=== PATIENT | male | born 1945 | race Caucasian/White ===

== ENCOUNTER → 2019-04-24 13:51 | Outpatient (CLI) | payer OTHER, SELFPAY ==
[2019-04-24 13:28] VITALS: BMI 37.0
[2019-04-24 15:46] LABS: Free T3 3.1 pg/mL (2.18-3.98); T4 Free Direct 0.85 ng/dL (0.76-1.46); Thyroid Stim Hormone (TSH) 0.92 uIU/mL (0.358-3.74)
== END ==
PROVIDERS: PCP Family Medicine; Referring Provider Internal Medicine Endocrinology, Diabetes & Metabolism; Visit Provider Internal Medicine Endocrinology, Diabetes & Metabolism
DX: I48.91 Unspecified atrial fibrillation (principal)
CPT/HCPCS: 36415; 84439; 84443; 84481

== ENCOUNTER → 2019-06-29 12:06 | Outpatient (CLI) | payer OTHER, SELFPAY ==
[2019-06-29 10:55] VITALS: BMI 37.0
[2019-06-29 13:00] LABS: Absolute Lymphocyte Count 2.52 X10^3/uL (0.83-4.51); Absolute Neutrophil Count 4.3 X10^3/uL (2.0-7.7); Basophil# 0.04 X10^3/uL; Basophil% 0.5 % (0-1); Eosinophil# 0.07 X10^3/uL; Eosinophils% 0.9 % (0-5); Hematocrit 40.6 % (40-54); Hemoglobin 13.7 g/dL (13.0-16.5); Lymphocyte # 2.52 X10^3/ul (4.0); Lymphocyte % 32.5 % (19-41); Mean Corp Hgb Conc 33.7 g/dL (32-36); Mean Corpuscular Hgb 31.9 pg (27.0-32.0); Mean Corpuscular Volume 94.4 fL (80-94); Mean Platelet Vol. 10.8 fl (6.2-12.0); Monocyte# 0.79 X10^3/uL; Monocyte% 10.2 % (0-10); NRBC Flagged by Analyzer 0 % (0-5); Neutrophil # 4.31 X10^3/uL (2.7-7.7); Neutrophil % 55.5 % (47-70); Platelet Count 179 K/mm3 (150-450); RBC Distribution Width CV 14.3 % (11.6-14.6); RBC Distribution Width SD 49.3 fl (35.1-43.9); White Blood Count 7.8 K/mm3 (4.4-11.0)
[2019-06-29 14:07] LABS: Anion Gap 5 (5-15); BUN 24 mg/dL (7-18); BUN/Creat Ratio 18.5 RATIO (10-20); Calcium,Total 9.5 mg/dL (8.5-10.1); Chloride 109 mmol/L (98-107); EST Glomerular Filtration Rate 58 mL/min (>60); Est Glom Filt Rate - Afr Amer 70 mL/min (>60); Glucose 101 mg/dL (74-106); Magnesium 1.8 mg/dL (1.6-2.6); Potassium 4.2 mmol/L (3.5-5.1); Sodium Level 139 mmol/L (136-145); T4 Total, Thyroxin 7.9 ug/dL (4.5-12.1); Thyroid Stim Hormone (TSH) 0.91 uIU/mL (0.358-3.74)
[2019-07-03 23:59] LABS: Flecainide (Tambocor) 085662 < 0.10 ug/mL (0.20-1.00)
== END ==
PROVIDERS: PCP Family Medicine; Referring Provider Internal Medicine Cardiovascular Disease; Visit Provider Internal Medicine Cardiovascular Disease
DX: I48.20 Chronic atrial fibrillation, unspecified (principal); I10 Essential (primary) hypertension; E78.5 Hyperlipidemia, unspecified
CPT/HCPCS: 36415; 80048; 80299; 83735; 84436; 84443; 85025

== ENCOUNTER 2019-07-10 10:43 | Day surgery (SDC) | payer OTHER, SELFPAY ==
[2019-06-29 10:55] VITALS: BMI 37.0
--- NOTE | 2019-06-29 12:48 | HP_ITS ---
HPI HPI History of Present Illness Surgical H&P: Yes Details: This is a 73-year-old white male who presents today for outpatient cardiovascular consultation based upon concerns of atrial fibrillation. He states he was diagnosed in November 2018, when he presented for an outpatient colonoscopy procedure, with atrial fibrillation. He states his colonoscopy procedure was placed on hold. He underwent local cardiovascular evaluation. He states that over time he had a subsequent second cardiovascular opinion regarding his atrial dysrhythmia. During his time he is undergone noninvasive evaluation. This included a transthoracic echocardiogram and a pharmacologic stress nuclear imaging study. Per the report regarding his transthoracic echocardiogram from [facility] in [place], [place] his left ventricle was thought to be normal with an LVEF of 50 to 55% with biatrial enlargement and no significant valvular disease. Of note the left atrium was reported moderately enlarged and the right atrium was reported mildly enlarged. He subsequently went on, at the same institution, and had a pharmacologic stress nuclear imaging study performed which per the report stated that there was no conclusive evidence of inducible myocardial ischemia or infarction. His gated LVEF was reported at 59%. He did have a remote cardiac catheterization performed on 09-20-1995 at [facility] in [place], [place]. At that time the left ventricle was normal with an LVEF of 60%. The left main coronary was normal. The LAD had minimal 10% plaque. The LCx was normal. The RCA was dominant and was considered normal. There was a comment at that time that the patient's myocardial infarction may have been due to vasospasm. Alternatively the patient may have had a very tiny thrombus occluding a very small vessel. He was recommended for continued medical management. He states that he has not been symptomatic with his atrial dysrhythmia with respect and noting any change in rates or rhythms. His rate has been controlled without rate limiting medication. Over time he was placed on anticoagulant therapy. He states he subsequently did interrupted in early February of this year to have his colonoscopy procedure performed. Otherwise he states he had has not been interrupted since February of this year. He states, after his second cardiovascular opinion, he was placed on medical therapy with flecainide/Tambocor. He was told that after approximately 1 week if he does not convert to sinus rhythm he would be offered elective DC cardioversion. He states he has had issues with respect communicating with that physician's office and thus is never proceeded with DC cardioversion. He denies any ongoing chest discomfort suspicious for angina pectoris. There is been no obvious evidence of acute CHF or pulmonary edema. There has been no near syncope or syncope. He had an ECG performed in the office today. He was noted to have underlying atrial fibrillation with a controlled ventricular response. There were no acute ECG changes. Intake Vital Signs 06/29/19 Height 6 ft 1 in 06/29/19 Weight: 280 lb 7 oz 06/29/19 BP 122/78 H 06/29/19 Blood Pressure Location Lt brachial 06/29/19 Position Sitting 06/29/19 Respiration 18 06/29/19 Pulse 76 06/29/19 Pulse Source Auscultation 06/29/19 BMI 37.0 Intake Visit Reasons: AFIB. SECOND OPINION. 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: No Accompanied by: Self Allergies MARKUS Inhibitors Adverse Reaction (Severe, Verified 06/29/19 10:59) intolerent erythromycin base Adverse Reaction (Severe, Verified 06/29/19 10:59) GI Upset Tqyetio-Spf-Jqs Reductase Inhibitor Adverse Reaction (Severe, Verified 06/29/19 10:59) myalgias Medications esomeprazole magnesium 40 mg capsule,delayed release 40 mg PO DAILY 12/26/18 [History Confirmed 06/29/19] losartan 100 mg tablet 100 mg PO DAILY 12/26/18 [History Confirmed 06/29/19] spironolactone 25 mg tablet 25 mg PO DAILY 12/26/18 [History Confirmed 06/29/19] tamsulosin 0.4 mg capsule 0.4 mg PO DAILY 12/26/18 [History Confirmed 06/29/19] rivaroxaban 20 mg tablet 20 mg PO DAILY 06/27/19 [History Confirmed 06/29/19] amlodipine 5 mg tablet 5 mg PO .COMPLEX 06/29/19 [History Confirmed 06/29/19] flecainide 100 mg tablet 100 mg PO Q12H #1 tab 06/29/19 [Rx Confirmed 06/29/19] [facility] Medical History (Updated 06/29/19 @ 11:[address] Jose Antunez MD) GERD (gastroesophageal reflux disease) (Chronic) MARILEE (obstructive sleep apnea) (Chronic) Chronic atrial fibrillation (Chronic) Essential hypertension (Chronic) Hyperlipidemia (Chronic) History of left heart catheterization (LHC) (Resolved ~09/20/95) Back problem (Acute) GI problem (Acute) Hearing problem (Acute) Hives (Acute) Seasonal allergies (Acute) Surgical History (Updated 06/27/19 @ 13:28 by Alma Hauser) History of cholecystectomy (Resolved) History of shoulder replacement (Resolved) H/O rotator cuff surgery (Resolved) Social History (Updated 06/29/19 @ 12:[address] Jose Antunez MD) Smoking Status: Former smoker alcohol intake: current substance use type: does not use caffeine: Yes Type: coffee Number of servings: 3 what type of physical activity do you participate in: other ROS Const Const: Positive for fatigue (fatigued by afternoon taking more naps then previously); negative for weakness, frequent falls, excessive sweating, weight gain or weight loss Eyes Eyes: Negative for transient loss of vision, blurry vision or change in vision ENT ENT: Negative for dizziness or balance problems Cardio Chest Pain: No Palpitations: No Edema: None Muscle aches with walking: None Resp Respiratory: Positive for SOB with activity (going upstairs; baseline) and wheezing (occasional); negative for SOB at rest GI GI: Negative vomiting or vomiting blood/hematemesis : Negative for hematuria Musc Musc: Negative for muscle aches/ myalgia, muscle weakness, joint pain or balance problems Skin Skin: Negative non-healing lesions or rash Neuro Neuro: Positive for lightheadedness (occasional when eating too fast); negative for dizziness, orthostatic symptoms, frequent falls, weakness or blurry vision [place] Hematologic/Lymphatic: Negative for easy bleeding Endo Endo: Positive for fatigue (fatigued by afternoon taking more naps then previously); negative for excessive sweating Psych Psych: Negative for anxiety or depression Allergy Allergy/Immunology: Negative for hives, Negative for rash Cardiology Exam Const Appearance: cooperative, healthy appearing, comfortable, no acute distress, well developed and well groomed Nutritional Appearance: obese Orientation: alert, awake and oriented x3 Head Head: normal to inspection, normocephalic and atraumatic Ears: hearing grossly normal bilaterally Nose: external nose normal Face and Sinus: face symmetric Eyes Eyelids: eyelids normal Conjunctivae: conjunctivae normal Pupils: PERRL EOM: EOM intact bilaterally Neck Neck: normal visual inspection Carotids: normal carotid upstroke Chest Chest inspection: normal inspection of the chest, symmetric chest movement and normal respiratory effort Auscultation: Bilateral: Clear to Auscultation Cardio Palpation: normal PMI Rhythm: irregular rhythm Heart sounds: S1 normal and S2 normal GI GI: normal to inspection, soft, bowel sounds present and obese Neuro General: alert, awake, oriented x3 and moves all extremities Skin Skin: ecchymosis Extremities Pulses: Normal: Right Radial Pulse, Left Radial Pulse Lower Extremity Edema: None: Bilateral Psych Psychological: normal affect Assessment & Plan 1. Chronic atrial fibrillation I48.20 Plan At the present time he appears to be remaining in persistent atrial fibrillation. This may be secondary to a combination of age and hypertension. He has been evaluated for any obvious left ventricular wall motion with regional abnormalities or systolic dysfunction which appear to be negative based upon his echocardiogram. He was evaluated for any obvious evidence of inducible myocardial ischemia suspicious for ongoing CAD. Again that appeared to be negative based upon his noninvasive studies. He has not been found to have other etiologies of his atrial dysrhythmia thus far. At the present time he has remained without rate control therapy based upon his underlying atrial fibrillation being rate controlled in and of itself without the assistance of medication. He has been on antiarrhythmic therapy with no adverse events. He has been on anticoagulant therapy without interruption since early February of this year. At the present time he will proceed with additional laboratory follow-up. He will also be scheduled for upcoming synchronized biphasic DC cardioversion in an attempt to regain sinus rhythm. Depending upon the findings he may or may not need continued medical management with rate control as deemed appropriate, antiarrhythmic therapy as deemed appropriate, and anticoagulant therapy versus consideration for EP consultation for possible EPS/RFA. The above was discussed with the patient. The synchronized biphasic DC cardioversion procedure with respect to risks and benefits were discussed. He was agreeable to this approach. Orders Orders: 12 Lead EKG performed by [facility] Today Cardioversion Today Basic Metabolic Profile (BMP) Today Magnesium Today T4 Total, Thyroxin Today Thyroid Stim Hormone (TSH) Today CBC W/Diff, Automated Today Flecainide (Tambocor) Level Today 2. Hyperlipidemia, unspecified hyperlipidemia type E78.5 Plan A copy of his lipid labs will be appreciated for continuity of care. Orders Orders: Cardioversion Today Basic Metabolic Profile (BMP) Today Magnesium Today T4 Total, Thyroxin Today Thyroid Stim Hormone (TSH) Today CBC W/Diff, Automated Today Flecainide (Tambocor) Level Today 3. Essential hypertension I10 Plan He will continue medical therapy with adjustment as deemed appropriate. Orders Orders: 12 Lead EKG performed by [facility] Today Cardioversion Today Basic Metabolic Profile (BMP) Today Magnesium Today T4 Total, Thyroxin Today Thyroid Stim Hormone (TSH) Today CBC W/Diff, Automated Today Flecainide (Tambocor) Level Today Plan Detail Other Medications New: flecainide 100 mg PO Q12H 1 tab 0RF Additional Comments Thank you for allowing me to participate in the care of your patient. Please don't hesitate to call if any issues arise. This note was generated using a voice recognition system and there may be incorrect words, spelling or punctuation that were not noted when reviewing the office note prior to saving. Time spent in the patient's evaluation/care/medical decision making process: 60 minutes Follow Up 3 Months (with PFM) Coding Level of Care Code Off vis,new,level 5 Diagnoses Chronic atrial fibrillation I48.20 Hyperlipidemia, unspecified hyperlipidemia type E78.5 ??Hyperlipidemia type: unspecified Essential hypertension I10 Time Spent (min) 60 Comment [id number] Coding Level of Care Code Off vis,new,level 5 Diagnoses Chronic atrial fibrillation I48.20 Hyperlipidemia, unspecified hyperlipidemia type E78.5 ??Hyperlipidemia type: unspecified Essential hypertension I10 Time Spent (min) 60 Comment [id number] Supplemental Info Supplemental Information Diagnostics Electrocardiogram 06/29/19 06/29/19 1249 <Electronically signed by Jose calderon MD> Date _ Jose Antunez MD I have re-examined the patient. There are no clinical changes since date of exam.
--- NOTE | 2019-07-05 12:40 | RAD_ITS ---
STUDY: X-RAY CHEST REASON FOR EXAM: Male, 73 years old. HAVING HEART CATH NEXT WEEK, NO CHEST COMPLAINTS TECHNIQUE: PA and lateral views of the chest. COMPARISON: None. FINDINGS: Cardiac silhouette unremarkable. Pulmonary vascularity unremarkable. Aorta atherosclerotic. No focal airspace opacities. No pleural effusions. Calcified nodule right upper lobe. Upper abdomen unremarkable. Osseous structures demonstrate a left shoulder arthroplasty. No pneumothorax. RAD/Chest PA and Lateral IMPRESSION: No acute cardiopulmonary findings Electronically Signed: Anthnoy Gustafson, at 13:00 EDT Tel , Service support ,
[2019-07-06 14:42] VITALS: BMI 36.9
--- NOTE | 2019-07-10 11:44 | HP.PCM_ITS ---
Problem List (1) Chronic atrial fibrillation Status: Chronic (2) Hyperlipidemia Status: Chronic Qualifiers: (3) Essential hypertension Status: Chronic History and Physical Date of Admission: 07/10/19 [facility] [address] [place] [address] OFFICE VISIT Date of Service: 06/29/19 MR#: [id number] Acct: [id number] Name: BALJIT LE Rep #: [id number] : 1945 Provider: Dr. Jose Antunez MD Age/Sex: 73/M [place] [facility] [place] Signed HPI HPI History of Present Illness Surgical H&P: Yes Details: This is a 73-year-old white male who presents today for outpatient cardiovascular consultation based upon concerns of atrial fibrillation. He states he was diagnosed in November 2018, when he presented for an outpatient colonoscopy procedure, with atrial fibrillation. He states his colonoscopy procedure was placed on hold. He underwent local cardiovascular evaluation. He states that over time he had a subsequent second cardiovascular opinion regarding his atrial dysrhythmia. During his time he is undergone noninvasive evaluation. This included a transthoracic echocardiogram and a pharmacologic stress nuclear imaging study. Per the report regarding his transthoracic echocardiogram from [facility] in [place], [place] his left ventricle was thought to be normal with an LVEF of 50 to 55% with biatrial enlargement and no significant valvular disease. Of note the left atrium was reported moderately enlarged and the right atrium was reported mildly enlarged. He subsequently went on, at the same institution, and had a pharmacologic stress nuclear imaging study performed which per the report stated that there was no conclusive evidence of inducible myocardial ischemia or infarction. His gated LVEF was reported at 59%. He did have a remote cardiac catheterization performed on 09-20-1995 at [facility] in [place], [place]. At that time the left ventricle was normal with an LVEF of 60%. The left main coronary was normal. The LAD had minimal 10% plaque. The LCx was normal. The RCA was dominant and was considered normal. There was a comment at that time that the patient's myocardial infarction may have been due to vasospasm. Alternatively the patient may have had a very tiny thrombus occluding a very small vessel. He was recommended for continued medical management. He states that he has not been symptomatic with his atrial dysrhythmia with respect and noting any change in rates or rhythms. His rate has been controlled without rate limiting medication. Over time he was placed on anticoagulant therapy. He states he subsequently did interrupted in early February of this year to have his colonoscopy procedure performed. Otherwise he states he had has not been interrupted since February of this year. He states, after his second cardiovascular opinion, he was placed on medical therapy with flecainide/Tambocor. He was told that after approximately 1 week if he does not convert to sinus rhythm he would be offered elective DC cardioversion. He states he has had issues with respect communicating with that physician's office and thus is never proceeded with DC cardioversion. He denies any ongoing chest discomfort suspicious for angina pectoris. There is been no obvious evidence of acute CHF or pulmonary edema. There has been no near syncope or syncope. He had an ECG performed in the office today. He was noted to have underlying atrial fibrillation with a controlled ventricular response. There were no acute ECG changes. Intake Vital Signs 06/29/19 Height 6 ft 1 in 06/29/19 Weight: 280 lb 7 oz 06/29/19 BP 122/78 H 06/29/19 Blood Pressure Location Lt brachial 06/29/19 Position Sitting 06/29/19 Respiration 18 06/29/19 Pulse 76 06/29/19 Pulse Source Auscultation 06/29/19 BMI 37.0 Intake Visit Reasons: AFIB. SECOND OPINION. Swing Manager Required: No Accompanied by: Self Allergies MARKUS Inhibitors Adverse Reaction (Severe, Verified 06/29/19 10:59) intolerent erythromycin base Adverse Reaction (Severe, Verified 06/29/19 10:59) GI Upset Rydepsj-Wed-Otp Reductase Inhibitor Adverse Reaction (Severe, Verified 06/29/19 10:59) myalgias Medications esomeprazole magnesium 40 mg capsule,delayed release 40 mg PO DAILY 12/26/18 [History Confirmed 06/29/19] losartan 100 mg tablet 100 mg PO DAILY 12/26/18 [History Confirmed 06/29/19] spironolactone 25 mg tablet 25 mg PO DAILY 12/26/18 [History Confirmed 06/29/19] tamsulosin 0.4 mg capsule 0.4 mg PO DAILY 12/26/18 [History Confirmed 06/29/19] rivaroxaban 20 mg tablet 20 mg PO DAILY 06/27/19 [History Confirmed 06/29/19] amlodipine 5 mg tablet 5 mg PO .COMPLEX 06/29/19 [History Confirmed 06/29/19] flecainide 100 mg tablet 100 mg PO Q12H #1 tab 06/29/19 [Rx Confirmed 06/29/19] PFSH Medical History (Updated 06/29/19 @ 11:[address] Jose Antunez MD) GERD (gastroesophageal reflux disease) (Chronic) MARILEE (obstructive sleep apnea) (Chronic) Chronic atrial fibrillation (Chronic) Essential hypertension (Chronic) Hyperlipidemia (Chronic) History of left heart catheterization (LHC) (Resolved ~09/20/95) Back problem (Acute) GI problem (Acute) Hearing problem (Acute) Hives (Acute) Seasonal allergies (Acute) Surgical History (Updated 06/27/19 @ 13:28 by Alma Hauser) History of cholecystectomy (Resolved) History of shoulder replacement (Resolved) H/O rotator cuff surgery (Resolved) Social History (Updated 06/29/19 @ 12:[address] Jose Antunez MD) Smoking Status: Former smoker alcohol intake: current substance use type: does not use caffeine: Yes Type: coffee Number of servings: 3 what type of physical activity do you participate in: other ROS Const Const: Positive for fatigue (fatigued by afternoon taking more naps then previously); negative for weakness, frequent falls, excessive sweating, weight gain or weight loss Eyes Eyes: Negative for transient loss of vision, blurry vision or change in vision ENT ENT: Negative for dizziness or balance problems Cardio Chest Pain: No Palpitations: No Edema: None Muscle aches with walking: None Resp Respiratory: Positive for SOB with activity (going upstairs; baseline) and wheezing (occasional); negative for SOB at rest GI GI: Negative vomiting or vomiting blood/hematemesis : Negative for hematuria Musc Musc: Negative for muscle aches/ myalgia, muscle weakness, joint pain or balance problems Skin Skin: Negative non-healing lesions or rash Neuro Neuro: Positive for lightheadedness (occasional when eating too fast); negative for dizziness, orthostatic symptoms, frequent falls, weakness or blurry vision Daquan Hematologic/Lymphatic: Negative for easy bleeding Endo Endo: Positive for fatigue (fatigued by afternoon taking more naps then previously); negative for excessive sweating Psych Psych: Negative for anxiety or depression Allergy Allergy/Immunology: Negative for hives, Negative for rash Cardiology Exam Const Appearance: cooperative, healthy appearing, comfortable, no acute distress, well developed and well groomed Nutritional Appearance: obese Orientation: alert, awake and oriented x3 Head Head: normal to inspection, normocephalic and atraumatic Ears: hearing grossly normal bilaterally Nose: external nose normal Face and Sinus: face symmetric Eyes Eyelids: eyelids normal Conjunctivae: conjunctivae normal Pupils: PERRL EOM: EOM intact bilaterally Neck Neck: normal visual inspection Carotids: normal carotid upstroke Chest Chest inspection: normal inspection of the chest, symmetric chest movement and normal respiratory effort Auscultation: Bilateral: Clear to Auscultation Cardio Palpation: normal PMI Rhythm: irregular rhythm Heart sounds: S1 normal and S2 normal GI GI: normal to inspection, soft, bowel sounds present and obese Neuro General: alert, awake, oriented x3 and moves all extremities Skin Skin: ecchymosis Extremities Pulses: Normal: Right Radial Pulse, Left Radial Pulse Lower Extremity Edema: None: Bilateral Psych Psychological: normal affect Assessment & Plan 1. Chronic atrial fibrillation I48.20 Plan At the present time he appears to be remaining in persistent atrial fibrillation. This may be secondary to a combination of age and hypertension. He has been evaluated for any obvious left ventricular wall motion with regional abnormalities or systolic dysfunction which appear to be negative based upon his echocardiogram. He was evaluated for any obvious evidence of inducible myocardial ischemia suspicious for ongoing CAD. Again that appeared to be negative based upon his noninvasive studies. He has not been found to have other etiologies of his atrial dysrhythmia thus far. At the present time he has remained without rate control therapy based upon his underlying atrial fibrillation being rate controlled in and of itself without the assistance of medication. He has been on antiarrhythmic therapy with no adverse events. He has been on anticoagulant therapy without interruption since early February of this year. At the present time he will proceed with additional laboratory follow-up. He will also be scheduled for upcoming synchronized biphasic DC cardioversion in an attempt to regain sinus rhythm. Depending upon the findings he may or may not need continued medical management with rate control as deemed appropriate, antiarrhythmic therapy as deemed appropriate, and anticoagulant therapy versus consideration for EP consultation for possible EPS/RFA. The above was discussed with the patient. The synchronized biphasic DC cardioversion procedure with respect to risks and benefits were discussed. He was agreeable to this approach. Orders Orders: 12 Lead EKG performed by [facility] Today Cardioversion Today Basic Metabolic Profile (BMP) Today Magnesium Today T4 Total, Thyroxin Today Thyroid Stim Hormone (TSH) Today CBC W/Diff, Automated Today Flecainide (Tambocor) Level Today 2. Hyperlipidemia, unspecified hyperlipidemia type E78.5 Plan A copy of his lipid labs will be appreciated for continuity of care. Orders Orders: Cardioversion Today Basic Metabolic Profile (BMP) Today Magnesium Today T4 Total, Thyroxin Today Thyroid Stim Hormone (TSH) Today CBC W/Diff, Automated Today Flecainide (Tambocor) Level Today 3. Essential hypertension I10 Plan He will continue medical therapy with adjustment as deemed appropriate. Orders Orders: 12 Lead EKG performed by [facility] Today Cardioversion Today Basic Metabolic Profile (BMP) Today Magnesium Today T4 Total, Thyroxin Today Thyroid Stim Hormone (TSH) Today CBC W/Diff, Automated Today Flecainide (Tambocor) Level Today Plan Detail Other Medications New: flecainide 100 mg PO Q12H 1 tab 0RF Additional Comments Thank you for allowing me to participate in the care of your patient. Please don't hesitate to call if any issues arise. This note was generated using a voice recognition system and there may be incorrect words, spelling or punctuation that were not noted when reviewing the office note prior to saving. Time spent in the patient's evaluation/care/medical decision making process: 60 minutes Follow Up 3 Months (with PFM) Coding Level of Care Code Off vis,new,level 5 Diagnoses Chronic atrial fibrillation I48.20 Hyperlipidemia, unspecified hyperlipidemia type E78.5 ??Hyperlipidemia type: unspecified Essential hypertension I10 Time Spent (min) 60 Comment 48081 Coding Level of Care Code Off vis,new,level 5 Diagnoses Chronic atrial fibrillation I48.20 Hyperlipidemia, unspecified hyperlipidemia type E78.5 ??Hyperlipidemia type: unspecified Essential hypertension I10 Time Spent (min) 60 Comment [id number] Supplemental Info Supplemental Information Diagnostics Electrocardiogram 06/29/19 06/29/19 1249 <Electronically signed by Jose calderon MD> Date _ Jose Antunez MD Cosigner Signature: Date (if applicable) CC: Dr. Yanira Pate MD ~ I have re-examined the patient. There are no clinical changes since date of exam . Procedure Criteria Procedure Type: Elective - Atrial Fibrillation COVID Risk Discussion: The surgeon/proceduralist and patient have discussed in detail the risk of exposure to and/or potential harm posed by the COVID-19 virus with having a surgery/procedure at this time versus the risk of delaying the surgery/proced ure. It is not possible to know either the risk of delaying the surgery or procedure or chance of getting an infection with perfect accuracy, but a joint decision was made between the patient and the surgeon/proceduralist to proceed at this time with the scheduled surgery/procedure as indicated on the consent form.
--- NOTE | 2019-07-10 12:33 | CARDIOVERS ---
Cardioversion Cardioversion: Date: 07-10-2019 Procedure: Synchronized Biphasic DC Cardioversion Indications: Atrial fibrillation Consent: Per the Patient Anesthesia: per Dr. Redding of pulmonology and critical care medicine with performed 90 mg IV push total Procedure: Synchronized Biphasic DC Cardioversion: 200 J x1: Result: Sinus rhythm Complications: no apparent complications This note was generated with Lexara dictation software. It may contain incorrect words, spelling, and punctuation that were not noted in checking the note before signing.
--- NOTE | 2019-07-10 13:21 | PCM.OP.PRO ---
Problem List (1) Chronic atrial fibrillation Status: Chronic (2) Essential hypertension Status: Chronic (3) GERD (gastroesophageal reflux disease) Status: Chronic (4) Hyperlipidemia Status: Chronic Qualifiers: (5) MARILEE (obstructive sleep apnea) Status: Chronic Procedure Report Date of Procedure: 07/10/19 - Conscious sedation CONSCIOUS SEDATION REPORT BRIEF HISTORY OF PRESENT ILLNESS: The patient is a 73-year-old male who presented to [facility] for an elective outpatient cardioversion due to underlying atrial fibrillation. The patient reports no PO intake since midnight. The patient does have a history of obstructive sleep apnea. The patient reports a history of smoking, but denies COPD. The patient denies any recent constitutional symptoms such as fevers, chills, nausea or vomiting. The patient denies previous anesthetic complications. Patient's last known ejection fraction was 50 to 55% and patient has been compliant with his Xarelto therapy. PHYSICAL EXAMINATION: VITAL SIGNS: Reviewed and were acceptable. GENERAL: The patient is a male, in no apparent distress, speaking in full sentences. HEENT: Normocephalic, atraumatic. Mucous membranes are moist and pink. Good mouth opening noted. Trachea is midline. Good neck mobility. MP IV CHEST: S1, S2 irregularly irregular. No murmurs, rubs or gallops were noted. LUNGS: Clear to auscultation bilaterally without appreciable wheezes, rales or rhonchi. ABDOMEN: Soft, nontender, nondistended. Positive bowel sounds. EXTREMITIES: There is no clubbing, cyanosis or edema. ASA Class: II DESCRIPTION OF PROCEDURE: After confirmation of informed consent, the patient's anesthesia plan was reviewed in detail. Propofol was chosen. Risks and benefits were reviewed and the patient agreed to proceed. At 12:16 PM, the patient was given 40 mg of propofol. The patient required a total of 90 mg of propofol throughout the procedure to achieve appropriate sedation. The patient achieved an appropriate level of sedation and received 1 attempt synchronized cardioversion, at [address] Antunez at the bedside. This was successful in achieving normal sinus rhythm. The patient was monitored until 12:28 PM, at which time the patient reached their baseline mental status and function. The patient tolerated the procedure well. COMPLICATIONS: None ESTIMATED BLOOD LOSS: None RECOMMENDATIONS: Okay to recover in usual fashion. 9xxxx: Other Procedure See Report - [id number]
== END 2019-07-10 13:30 | disposition home or self-care (01) ==
LOC: CLSP 10:43
PROVIDERS: PCP Family Medicine; Referring Provider Internal Medicine Cardiovascular Disease; Visit Provider Internal Medicine Cardiovascular Disease
DX: I48.20 Chronic atrial fibrillation, unspecified (principal); I10 Essential (primary) hypertension; E78.5 Hyperlipidemia, unspecified; E66.9 Obesity, unspecified; Z68.37 Body mass index [BMI] 37.0-37.9, adult
CPT/HCPCS: 71046; 92960; 93005; J7040

== ENCOUNTER → 2019-10-15 12:54 | Outpatient (CLI) | payer OTHER, SELFPAY ==
[2019-10-08 14:00] VITALS: BMI 36.6
== END ==
PROVIDERS: PCP Family Medicine; Referring Provider Internal Medicine Cardiovascular Disease; Visit Provider Internal Medicine Cardiovascular Disease
DX: I48.20 Chronic atrial fibrillation, unspecified (principal); I10 Essential (primary) hypertension; E78.5 Hyperlipidemia, unspecified
CPT/HCPCS: 93225; 93226

== ENCOUNTER 2021-01-15 08:33 | Day surgery (SDC) | payer OTHER, SELFPAY ==
--- NOTE | 2021-01-15 | ESO_PTH ---
PATIENT: BALJIT LE LOC: EN U#:[id number] AGE/SX: 75/M ROOM: RE01/15/[address]: Dr. Axel Sparrow DO : 1945 BED: DIS: 01/15/2021 SPEC #: [id number] RECD: 01/15/21 12:32 STATUS: NIKOLAI TYRON #: [id number] EUN: 01/15/21 00:[address]: Axel Sparrow DEPT: SURGICAL PATHOLOGY RECD BY: Gareth Lunsford ENTERED: 01/15/21 12:32 SP TYPE: KATHERYN GÓMEZ DR: Dr. Yanira Pate MD Tissues: A - Esophagus, NOS B - Gastric mucous membrane Procedures: Special Stain Group II Surgery Specimen Level IV Alcian Blue/PAS (control) HEADER OPERATION: EGD PRE-OP DIAGNOSIS: GERD TISSUE SUBMITTED: A ? Distal esophagus biopsy, B ? Gastric polyp biopsy of lesser curvature MICROSCOPIC DIAGNOSIS A. Distal esophagus, biopsy: Fragments of gastric mucosa with mild chronic inflammation. Intestinal metaplasia (goblet cell metaplasia) not identified. See comment. B. Gastric polyp, biopsy: Fragments of mixed hyperplastic/inflammatory and fundic gland polyp. RICHARD:mark 01/16/2021 COMMENT A. Alcian blue/PAS stain with matched control is used in the evaluation of the specimen. MICROSCOPIC DESCRIPTION Slides are reviewed. GROSS DESCRIPTION A - Received in fixative is one container labeled with the patient's name and designated distal esophagus biopsy. The specimen consists of two irregular fragments of light knight soft tissue that in aggregate measure 0.6 x 0.3 x 0.1 cm. The specimen is totally submitted in one cassette. B - Received in fixative is one container labeled with the patient's name and designated gastric polyp biopsy of lesser curvature. The specimen consists of two irregular fragments of light knight soft tissue that in aggregate measure 0.6 x 0.4 x 0.1 cm. The specimen is totally submitted in one cassette. / RICHARD:mark 01/15/21 TC:3 CPT: 31481 x2
[2021-01-15] MEDS: Lactated Ringers 1,000 ML 15 ML IV (09:00)
[2021-01-15 09:12] VITALS: BP 149/92; PULSE 67; RESP 16; TEMP 36.2; O2SAT 97; BMI 36.6
--- NOTE | 2021-01-15 09:28 | PCM.HP.BLA ---
History and Physical Date of Admission: 01/15/21 [facility], [facility] Medical History Back problem Chronic atrial fibrillation Essential hypertension GERD (gastroesophageal reflux disease) GI problem Hearing problem History of cardioversion (~07/10/19) History of left heart catheterization (LHC) (~09/20/95) Hives Hyperlipidemia MARILEE (obstructive sleep apnea) Seasonal allergies Surgical History H/O rotator cuff surgery History of bilateral cataract extraction History of cholecystectomy History of shoulder replacement Family History Mother Diabetes CVA (cerebral vascular accident) Father Hypertension CVA (cerebral vascular accident) Heart disease Social History Smoking Status: Former smoker alcohol intake: current substance use type: does not use caffeine: Yes Type: coffee Number of servings: 3 what type of physical activity do you participate in: other HPI HPI Details: BALJIT LE, is a 75 M who presents to the office today for the evaluation of abdominal pain and worsening gastroesophageal reflux disease. Patient says he does have a history of hiatal hernia. He does not know if he has history Pfeiffer's esophagus. He said he has been on Nexium for the last 20 years. He is getting breakthrough symptoms. He is not on a PPI twice a day. He has not tried famotidine. He has problems with spicy foods. He complains of a lot of gas and bloating. He also complains of nausea with emesis during the night; this onset about a month ago with increase in symptoms in the last couple weeks with recent improvement. Has noted that gas producing foods and acidic foods trigger symptoms. For the last 20-30 years he has been having difficulty with reflux disease with progressive increase in intensity and frequency. Last colonoscopy two years ago - several polyps removed. EGD performed around the same time - hiatal hernia noted. Currently taking OTC Nexium. ROS Const Constitutional: Positive for fatigue Gastro GI: Positive for abdominal pain, bloating, change in bowel habits, diarrhea, heartburn, nausea/dyspepsia and vomiting Genitourinary Male: Positive for urinary frequency and urinary urgency Skin Skin: Positive for itchy eyes Endo Endocrine: Positive for cold intolerance, fatigue and increased urine leakage Aller/Imm Allergy/Immunologic: Positive for itchy eyes Daquan/Lymp Hematologic/Lymphatic: Positive for easy bruising Exam Const General: cooperative and comfortable Nutritional Appearance: average body habitus and well nourished [facility] Head: normal to inspection Ears: hearing grossly normal bilaterally Nose: external nose normal Face and sinus: normal facial exam Mouth: oral mucosae normal Throat: posterior oropharynx normal Eyes General: appearance normal, both eyes and all related structures Neck Neck: normal visual inspection Chest Chest palpation & inspection: normal inspection of the chest and normal palpation of entire chest wall Resp Effort & Inspection: normal respiratory effort Auscultation: Bilateral: Clear to Auscultation Cardio Palpation: normal PMI Rate: regular rate Rhythm: regular rhythm GI Inspection: normal to inspection Auscultation: normal bowel sounds Percussion: normal to percussion Palpation: no hepatosplenomegaly Skin General: no rashes or lesions noted Neuro General: patient alert Extrem General: normal to inspection Psych Affect: normal affect Quality Reporting Tobacco Screening ([facility] 138) Smoking Status: Former smoker Assessment and Plan Assessment and Plan (1) GERD (gastroesophageal reflux disease): Status: Chronic Plan - Dr. Reyna Friend, DO: We will evaluate his upper GI tract for Pfeiffer's esophagus, hiatal hernia, erosive esophagitis. He will also get biopsies for eosinophilic esophagitis. He may need a gastric emptying study to see if he is having problems gastric emptying. This also could be because of worsening gastroesophageal reflux disease refractory to medical therapy. I have re-examined the patient. There are no clinical changes since date of exam.
[2021-01-15 10:00] VITALS: BP 123/79; BP 149/92; PULSE 69; RESP 16; TEMP 36.3; O2SAT 97
[2021-01-15 10:05] VITALS: BP 127/80; BP 149/92; PULSE 64; RESP 16; O2SAT 94
--- NOTE | 2021-01-15 10:07 | OP.EGD_ITS ---
Patient Name: Nabeel Clifford Procedure Date: 01/15/2021 9:32 AM Date of : 1945 Age: 75 Procedure: Upper GI endoscopy Indications: Epigastric abdominal pain, Dyspepsia, Heartburn Providers: Axel Sparrow DO Medicines: See the Anesthesia note for documentation of the administered medications Patient Profile: This is a 75 year old male. Refer to note in patient chart for documentation of history and physical. Patient has symptoms of chronic abdominal cramping, chronic abdominal distention and acute heartburn. Complications: No immediate complications. Procedure: Pre-Anesthesia Assessment: - Prior to the procedure, a History and Physical was performed, and patient medications and allergies were reviewed. The patient is competent. The risks and benefits of the procedure and the sedation options and risks were discussed with the patient. All questions were answered and informed consent was obtained. Patient identification and proposed procedure were verified by the physician in the pre-procedure area. Mental Status Examination: alert and oriented. Airway Examination: normal oropharyngeal airway and neck mobility. Respiratory Examination: clear to auscultation. CV Examination: normal. Prophylactic Antibiotics: The patient does not require prophylactic antibiotics. Prior Anticoagulants: The patient has taken no previous anticoagulant or antiplatelet agents. After reviewing the risks and benefits, the patient was deemed in satisfactory condition to undergo the procedure. The anesthesia plan was to use moderate sedation / analgesia (conscious sedation). Immediately prior to administration of medications, the patient was re-assessed for adequacy to receive sedatives. The heart rate, respiratory rate, oxygen saturations, blood pressure, adequacy of pulmonary ventilation, and response to care were monitored throughout the procedure. The physical status of the patient was re-assessed after the procedure. After obtaining informed consent, the endoscope was passed under direct vision. Throughout the procedure, the patient's blood pressure, pulse, and oxygen saturations were monitored continuously. The gastroscope was introduced through the mouth, and advanced to the second part of duodenum. The upper GI endoscopy was accomplished without difficulty. The patient tolerated the procedure well. Moderate Sedation: Moderate (conscious) sedation was administered by the endoscopy nurse and supervised by the endoscopist. The patient's oxygen saturation, heart rate, blood pressure and response to care were monitored. Total physician intraservice time was 15 minutes. Scope In: 9:44:14 AM Scope Out: 9:52:23 AM Total Procedure Duration Time 0 hours 8 minutes 9 seconds Findings: Grade I varices were found in the upper third of the esophagus. Estimated blood loss: none. Grade I varices were found in the lower third of the esophagus. They were 2 mm in largest diameter. LA Grade A (one or more mucosal breaks less than 5 mm, not extending between tops of 2 mucosal folds) esophagitis with no bleeding was found 34 to 35 cm from the incisors. Biopsies were taken with a cold forceps for histology. A single 5 mm sessile polyp with no bleeding and no stigmata of recent bleeding was found on the lesser curvature of the stomach. The polyp was removed with a jumbo cold forceps. Resection was complete, but the polyp tissue was only partially retrieved. Estimated blood loss was minimal. The second portion of the duodenum was normal. Localized atrophic mucosa was found on the greater curvature of the stomach. Diffuse moderate mucosal changes characterized by thickened gastric folds throughout the stomach were found in the entire examined stomach. Impression: - Grade I esophageal varices. - Grade I esophageal varices. - LA Grade A reflux esophagitis. Biopsied. - A single gastric polyp. Complete resection. Partial retrieval. - Normal second portion of the duodenum. - Gastric mucosal atrophy. - Thickened gastric folds throughout the stomach mucosa in the stomach. Recommendation: - Discharge patient to home. - Resume previous diet. - Continue present medications. - Await pathology results. - Repeat upper endoscopy in 1 year for surveillance based on pathology results. - Return to GI office in 2 weeks. -Check serum gastrin level, protein electrophoresis, CMP, CT scan of the chest and abdomen pelvis Procedure Code(s): --- Professional --- 49165, Esophagogastroduodenoscopy, flexible, transoral; with biopsy, single or multiple G0500, Moderate sedation services provided by the same physician or other qualified health manager urgent care performing a gastrointestinal endoscopic service that sedation supports, requiring the presence of an independent trained observer to assist in the monitoring of the patient's level of consciousness and physiological status; initial 15 minutes of intra-service time; patient age 5 years or older (additional time may be reported with 64901, as appropriate) CPT copyright 2017 [employer]. All rights reserved. The codes documented in this report are preliminary and upon sales and marketing coordinator review may be revised to meet current compliance requirements. Axel Sparrow DO 01/15/2021 10:07:23 AM This report has been signed electronically. Number of Addenda: 1 Note Initiated On: 01/15/2021 9:32 AM Addendum Number: 1 Addendum Date: 10/21/2021 6:59:59 AM MAC was used instead of moderate sedation for the patient. Axel Sparrow DO 10/21/2021 7:00:06 AM This report has been signed electronically.
[2021-01-15 10:10] VITALS: BP 139/80; BP 149/92; PULSE 62; RESP 16; O2SAT 97
[2021-01-15 10:15] VITALS: BP 137/82; BP 149/92; PULSE 63; RESP 16; TEMP 36.5; O2SAT 95
[2021-01-15 11:26] VITALS: BP 149/92
[2021-01-15 11:37] LABS: Erythrocyte Sedimentation Rate 8 mm/hr (0-20)
[2021-01-15 11:46] LABS: ALB/GLOB Ratio 0.9 RATIO (0.9-2.4); AST(SGOT) 20 U/L (15-37); Alanine Aminotransfer ALT/SGPT 31 U/L (16-61); Albumin, Serum 3.8 g/dL (3.2-5.0); Alkaline Phosphatase 66 U/L (45-117); Anion Gap 5 (5-15); BUN 24 mg/dL (7-18); BUN/Creat Ratio 19.2 RATIO (10-20); Calcium,Total 9.5 mg/dL (8.5-10.1); Chloride 106 mmol/L (98-107); Creatinine, Serum 1.25 mg/dL (0.70-1.30); EST Glomerular Filtration Rate 60 mL/min (>60); Est Glom Filt Rate - Afr Amer 73 mL/min (>60); Estimated Creatinine Clearance 59.48 ml/min; Globulin 4.1 g/dL (2.2-4.2); Glucose 142 mg/dL (74-106); Potassium 4.3 mmol/L (3.5-5.1); Protein, Total 7.9 g/dL (6.4-8.2); Sodium Level 138 mmol/L (136-145)
[2021-01-17 14:08] LABS: Cytoplasmic Ab (C-ANCA) <1:20 titer (Neg:<1:20)
[2021-01-17 14:25] LABS: Perinuclear Ab (P-ANCA) <1:20 titer (Neg:<1:20)
[2021-01-17 14:26] LABS: Gastrin, Serum 874 pg/mL (0-115)
== END 2021-01-15 11:29 ==
LOC: EN 08:38 → AC 08:38
PROVIDERS: PCP Family Medicine; Referring Provider Family Medicine; Visit Provider Internal Medicine Gastroenterology
PROC: (CPT 43239; principal; 2021-01-15 09:40)
DX: I85.00 Esophageal varices without bleeding (principal); K29.40 Chronic atrophic gastritis without bleeding; K21.00 Gastro-esophageal reflux disease with esophagitis, without bleeding; K31.7 Polyp of stomach and duodenum; I10 Essential (primary) hypertension; K21.9 Gastro-esophageal reflux disease without esophagitis; E78.5 Hyperlipidemia, unspecified; I48.20 Chronic atrial fibrillation, unspecified; Z87.891 Personal history of nicotine dependence; Z79.02 Long term (current) use of antithrombotics/antiplatelets; Z79.899 Other long term (current) drug therapy
CPT/HCPCS: 43239; 80053; 82941; 85652; 86256; 88305; 88313; J7120; J2405

== ENCOUNTER → 2021-01-26 12:00 | Outpatient (CLI) | payer OTHER, SELFPAY ==
--- NOTE | 2021-01-26 12:05 | CT_ITS ---
STUDY: CT ABDOMEN AND PELVIS WITH CONTRAST REASON FOR EXAM: Male, 75 years old. Increased abdominal pain RADIATION DOSAGE (If Supplied By Facility): CTDIvol = ( 20.29 ) mGy, DLP = ( 1235.67 ) mGycm TECHNIQUE: Transaxial images were obtained from the dome of the diaphragm to the symphysis pubis with oral contrast. Oral and amp; IV Gastrografin and amp; 100mL Isovue-370 was administered. Sagittal and coronal images were reconstructed. Individualized dose optimization techniques were used for this CT. COMPARISON: None. FINDINGS: Mild increased linear markings at the lung bases suggestive of a mild degree of linear scarring. The visualized portions of the heart are within normal limits. There is decreased attenuation of the liver consistent with steatosis. There is evidence of a 1.1 cm cyst in the inferior medial aspect of the right lobe of the liver. The patient is status post cholecystectomy. Normal spleen. Normal pancreas. Normal bilateral adrenal glands. There is a 1 cm cyst in the anterior upper pole of the right kidney. Small cysts are also seen in the left kidney. The largest is in the anterior aspect and measures 1.1 cm. There is a small left retroaortic renal vein. Normal visualized stomach. Normal small intestine. There are multiple colonic diverticula consistent with diverticulosis. The appendix is visualized and appears normal. There is diffuse atherosclerotic calcification of the abdominal aorta and its major visceral branches, without a demonstrated aneurysm. Normal inferior vena cava. There is borderline retroperitoneal lymphadenopathy with enlarged nodes no greater than 10mm in the short axis diameter. The urinary bladder is not adequately distended. The prostate is enlarged and measures 4.6 cm x 5.3 cm. Diffuse calcifications are seen within it. There is a small umbilical hernia containing fat. There are diffuse degenerative changes of the visualized lumbar spine. CT/Abdomen/Pelvis WITH Contrast IMPRESSION: Mild basilar linear scarring. Fatty infiltration of the liver. Small cyst in the right lobe of the liver. Bilateral renal cysts. Sigmoid diverticulosis. Prostatic enlargement. Electronically Signed: Darrian Rodriguez MD at 14:58 EST , Service support ,
== END ==
PROVIDERS: PCP Family Medicine; Referring Provider Internal Medicine Gastroenterology; Visit Provider Internal Medicine Gastroenterology
DX: K76.0 Fatty (change of) liver, not elsewhere classified (principal); K76.89 Other specified diseases of liver; K57.30 Diverticulosis of large intestine without perforation or abscess without bleeding; N28.1 Cyst of kidney, acquired; N40.0 Benign prostatic hyperplasia without lower urinary tract symptoms; R10.9 Unspecified abdominal pain
CPT/HCPCS: 74177; Q9967

== ENCOUNTER → 2021-02-04 10:08 | Outpatient (CLI) | payer OTHER, SELFPAY ==
--- NOTE | 2021-02-04 10:12 | NM_ITS ---
CLINICAL: 75-year-old male with history of abdominal pain. SEMI-SOLID PHASE 99m Tc SULFUR COLLOID GASTRIC EMPTYING STUDY COMPARISON: CT of the abdomen-pelvis report 01/26/2021 FINDINGS: The patient was administered 1.1 mCi of 99m Tc sulfur colloid mixed with oatmeal and consumed per os. Image acquisitions in the anterior-posterior projections for a total of 60 minutes. There is prompt visualization of the stomach. There is no gastroesophageal reflux identified. The T ? emptying was calculated to be 13.21 minutes, (Normal: 12-56 minutes). NM/Gastric Emptying Study IMPRESSION: 1. NORMAL 99m Tc sulfur colloid semi-solid phase (oatmeal) gastric emptying imaging examination. A. There is normal and preserved semi-solid phase gastric emptying compared to normal controls. (Stuart et al, J Nucl Med Tech 38: 186, 2010). Electronically Signed: Abelino Nelson DO at 22:20 EST Tel , Service support ,
== END ==
PROVIDERS: PCP Family Medicine; Referring Provider Internal Medicine Gastroenterology; Visit Provider Internal Medicine Gastroenterology
DX: E16.4 Increased secretion of gastrin (principal)
CPT/HCPCS: 78264; A9541

== ENCOUNTER → 2021-02-11 08:30 | Outpatient (CLI) | payer OTHER, SELFPAY ==
--- NOTE | 2021-02-11 08:56 | US_ITS ---
STUDY: ABDOMINAL ULTRASOUND - RIGHT UPPER QUADRANT REASON FOR VISIT: Male, 75 years old [place] TECHNIQUE: Ultrasound evaluation of the right upper quadrant was performed with real-time and static molina-scale imaging. TECHNICAL QUALITY: Adequate. COMPARISON: Comparison is made with prior CT scan of the abdomen and pelvis dated 01/26/2021. FINDINGS: Liver: The liver is mildly enlarged and measures 19.1 cm. There is increased echogenicity consistent with fatty infiltration. The bile ducts are within normal limits. There is hepatic color flow. The direction of portal flow is hepatopetal. There is no demonstrated mass lesion. Gallbladder: The patient is status post cholecystectomy. Common Bile Duct (C.B.D.): The common bile duct measures 5.3 mm. Pancreas: Normal size of the head, body and tail of the pancreas. There is normal echogenicity of the pancreas. There is no demonstrated pancreatic mass or cyst. Right Kidney: Normal size of the right kidney. The right kidney measures 11.8 cm x 6.3 cm x 6.7 cm. Normal renal cortex. The right cortex measures 2.2 cm. There is a 1 cm x 0.9 cm x 0.9 cm right renal cyst. There is no right hydronephrosis. IMPRESSION: Mild hepatomegaly and fatty infiltration of the liver. Electronically Signed: Darrian Rodriguez MD at 10:12 EST , Service support , STUDY: ABDOMINAL ULTRASOUND - ELASTOGRAPHY REASON FOR VISIT: Male, 75 years old. [place]. TECHNIQUE: Liver stiffness measurements were obtained on a [employer] 85 ultrasound machine using a CA 1-7 probe following the SRU guidelines. 3 measurements were obtained using a 2-D-SWE method. The IQR/M was 18% suggesting a quality data set. TECHNICAL QUALITY: Adequate. COMPARISON: Comparison is made with prior examination done earlier in the day. FINDINGS: Liver: There is evidence of fatty infiltration of the liver. Median liver stiffness measured 6 kPa. US/Abdomen Limited IMPRESSION: Liver stiffness measures 6 kPa compatible with F2 Metavir score. Electronically Signed: Darrian Rodriguez MD at 10:14 EST , Service support ,
== END ==
PROVIDERS: PCP Family Medicine; Referring Provider Internal Medicine Gastroenterology; Visit Provider Internal Medicine Gastroenterology
DX: K75.81 Nonalcoholic steatohepatitis (NASH) (principal)
CPT/HCPCS: 76705; 76981

== ENCOUNTER 2021-03-31 07:53 | Outpatient (CLI) | payer OTHER, SELFPAY ==
[2021-03-31 08:42] LABS: International Normalized Ratio 1.2; Prothrombin Time (Protime)PT. 14.3 SECONDS (11.7-14.9)
[2021-03-31 08:45] LABS: Erythrocyte Sedimentation Rate 6 mm/hr (0-20)
[2021-03-31 08:46] LABS: Absolute Lymphocyte Count 2.01 X10^3/uL (0.83-4.51); Absolute Neutrophil Count 2.7 X10^3/uL (2.0-7.7); Basophil# 0.03 X10^3/uL; Basophil% 0.5 % (0-1); Eosinophil# 0.03 X10^3/uL; Eosinophils% 0.5 % (0-5); Hemoglobin 14.4 g/dL (13.0-16.5); Lymphocyte # 2.01 X10^3/ul (0.83-4.51); Lymphocyte % 35.3 % (19-41); Mean Corp Hgb Conc 35.1 g/dL (32-36); Mean Corpuscular Hgb 32.7 pg (27.0-32.0); Mean Corpuscular Volume 93.2 fL (80-94); Mean Platelet Vol. 10.6 fl (6.2-12.0); Monocyte# 0.88 X10^3/uL; Monocyte% 15.5 % (0-10); NRBC Flagged by Analyzer 0 % (0-5); Neutrophil # 2.72 X10^3/uL (2.7-7.7); Neutrophil % 47.8 % (47-70); Platelet Count 218 K/mm3 (150-450); RBC Distribution Width CV 14.2 % (11.6-14.6); White Blood Count 5.7 K/mm3 (4.4-11.0)
[2021-03-31 09:07] LABS: Hemoglobin A1c 5.6 % (3.8-5.6)
[2021-03-31 09:12] LABS: AST(SGOT) 19 U/L (15-37); Alanine Aminotransfer ALT/SGPT 31 U/L (16-61); Albumin, Serum 3.8 g/dL (3.2-5.0); Alkaline Phosphatase 75 U/L (45-117); Anion Gap 5 (5-15); BUN 30 mg/dL (7-18); BUN/Creat Ratio 21.6 RATIO (10-20); CRP < 2.90 mg/L (0.0-3.0); Calcium,Total 9.2 mg/dL (8.5-10.1); Chloride 107 mmol/L (98-107); Creatinine, Serum 1.39 mg/dL (0.70-1.30); EST Glomerular Filtration Rate 53 mL/min (>60); Est Glom Filt Rate - Afr Amer 64 mL/min (>60); Ferritin 196 ng/mL (26-388); Globulin 3.9 g/dL (2.2-4.2); Glucose 113 mg/dL (74-106); LDH 213 U/L (87-241); Potassium 4.3 mmol/L (3.5-5.1); Protein, Total 7.7 g/dL (6.4-8.2); Sodium Level 137 mmol/L (136-145)
[2021-03-31 09:28] LABS: HIV - WCH Non-Reactive (Nonreactive)
[2021-04-01 16:10] LABS: Anti-Centromere B Ab <0.2 AI (0.0-0.9); Anti-Chromatin <0.2 AI (0.0-0.9); Anti-Jo <0.2 AI (0.0-0.9); Anti-Scleroderma-70 AB <0.2 AI (0.0-0.9); RNP Ab 0.5 AI (0.0-0.9); SJOGREN'S Anti-SS-A test < 0.2 AI (0.0-0.9); SJOGREN'S Anti-SS-B test < 0.2 AI (0.0-0.9); Smith Ab <0.2 AI (0.0-0.9)
[2021-04-01 17:54] LABS: Anti-Mitochondrial AB <20.0 Units (0.0-20.0); Anti-dsDNA Ab <1 IU/mL (0-9)
[2021-04-04 01:06] LABS: Angiotensin Convert Enzyme 74 U/L (14-82); HEPATITIS B SURFACE AG Negative (Negative); Hepatitis A IgM Antibody Negative (Negative); Hepatitis B Core AB IgM Negative (Negative); PROEL- A/G Ratio 1.2 (0.7-1.7); PROEL- Albumin 3.8 g/dL (2.9-4.4); PROEL- Alpha-1 Globulin 0.2 g/dL (0.0-0.4); PROEL- Alpha-2 Globulin 0.6 g/dL (0.4-1.0); PROEL- Beta Globulin 1.1 g/dL (0.7-1.3); PROEL- Gamma Globulin 1.4 g/dL (0.4-1.8); PROEL- Globulin, Total 3.3 g/dL (2.2-3.9); PROEL- TOTAL PROTEIN 7.1 g/dL (6.0-8.5)
[2021-04-04 10:22] LABS: Anti-Smooth Muscle ABS 9 Units (0-19); Haptoglobin 116 mg/dL (34-355); Hep C Antibodies <0.1 s/co ratio (0.0-0.9)
[2021-04-04 10:23] LABS: Copper, Serum or Plasma 89 ug/dL (69-132); Gastrin, Serum 569 pg/mL (0-115)
== END 2021-03-31 23:59 | disposition home or self-care (01) ==
PROVIDERS: PCP Family Medicine; Referring Provider Internal Medicine Gastroenterology; Visit Provider Internal Medicine Gastroenterology
DX: K76.0 Fatty (change of) liver, not elsewhere classified (principal); K21.9 Gastro-esophageal reflux disease without esophagitis; E16.4 Increased secretion of gastrin
CPT/HCPCS: 80053; 80074; 82105; 82164; 82390; 82525; 82728; 82941; 83010; 83036; 83516; 83615; 84165; 85025; 85610; 85652; 86140; 86225; 86235; 86703

== ENCOUNTER → 2021-11-04 | Outpatient (CLI) | payer OTHER, SELFPAY ==
--- NOTE | 2021-11-04 07:40 | CT_ITS ---
INDICATION: COUGH EXAMINATION: CT CHEST WITH CONTRAST - CT Chest W/ Contrast Injection TECHNIQUE: Helically acquired images were obtained of the chest following IV contrast. A radiation dose optimization technique was used for this scan. IV Contrast dosage and agent: 100 mL of ISOVUE-370. COMPARISON: 01/26/2021. FINDINGS: THYROID: 0.9 cm nodule visualized in the isthmus. Subtle areas of low attenuation visualized in bilateral thyroid lobes suggestive of nodules would recommend further evaluation with a dedicated thyroid ultrasound. HEART AND PERICARDIUM: Heart size is mildly enlarged. Scattered atherosclerotic calcifications visualized in the coronary vessels.. No pericardial effusion. VESSELS: Thoracic aorta is not dilated. No aortic dissection. No obvious central pulmonary embolism although this study was not performed with the pulmonary embolism protocol. LUNGS, PLEURA AND LARGE AIRWAYS: 0.9 times centimeters calcified granuloma visualized in the right upper lobe. Prominence of the bronchovascular interstitial lung markings is visualized bilaterally. Bronchial wall thickening is seen, no evidence of endobronchial or endotracheal lesions is seen. Bilateral lower lobe dependent atelectatic changes are seen. With groundglass opacification visualized in the lower lung cuellar more prominent on the left. No evidence of pneumothorax or pleural effusion. MEDIASTINUM AND YOUSUF: Scattered mediastinal lymph nodes visualized the largest of which is seen along the anterior aspect of the right mainstem bronchus/paula seen on axial series 2 image 44 measuring 1.6 cm. Right hilar lymph nodes visualized most prominent on axial series 2 image 49 measuring 2.1 cm. Subcarinal lymph nodes visualized on axial series 2 image 53 measuring 1.6 cm. Left hilar lymph nodes visualized on axial series 2 image 53 measuring 1.5 cm.. Esophagus is unremarkable. No hiatal hernia. UPPER ABDOMEN: No acute pathology. BONES: No suspicious lytic or blastic abnormality. CT/Chest WITH Contrast IMPRESSION: Bronchial wall thickening, chronic interstitial markings visualized in the lower lung cuellar with groundglass airspace opacification seen. These findings demonstrate significant significant progression in comparison to the prior study obtained on 01/26/2021. Mild cardiomegaly. Electronically Signed: Mitchell Ag MD at 11:59 EDT ,
[2021-11-04 07:51] LABS: CREATININE FINGERSTICK 1.4 mg/dL (0.70-1.30)
== END | disposition home or self-care (01) ==
PROVIDERS: PCP Family Medicine; Referring Provider Family Medicine; Visit Provider Family Medicine
DX: R04.2 Hemoptysis (principal)
CPT/HCPCS: 71260; Q9967; A4216

== ENCOUNTER → 2021-11-20 | Outpatient (CLI) | payer OTHER, SELFPAY ==
[2021-11-20 13:36] LABS: Cholesterol 220 mg/dL (200); High Density Lipoprotein 59 mg/dL; Thyroid Stim Hormone (TSH) < 0.01 uIU/mL (0.358-3.74); Triglycerides 96 mg/dL; Very Low Density Lipoprotein 19 mg/dL (5-40)
[2021-11-20 14:18] LABS: Hemoglobin A1c 5.7 % (3.8-5.6)
[2021-11-20 15:58] LABS: T3 Total - Triiodothyronine 0.98 ng/mL (0.6-1.81)
[2021-11-23 16:08] LABS: Endomysial Antibody IgA Negative (Negative); Immunoglobulin A 302 mg/dL (61-437)
[2021-11-24 09:24] LABS: Gastrin, Serum 301 pg/mL (0-115); t-Transglutaminase IgA <2 U/mL (0-3)
== END | disposition home or self-care (01) ==
LOC: LAB 11:46
PROVIDERS: PCP Family Medicine; Visit Provider Nurse Practitioner Adult Health
DX: E16.4 Increased secretion of gastrin (principal); K76.0 Fatty (change of) liver, not elsewhere classified; R10.9 Unspecified abdominal pain; R94.6 Abnormal results of thyroid function studies
CPT/HCPCS: 36415; 80061; 82784; 82941; 83036; 83516; 84439; 84443; 84480; 86255

== ENCOUNTER → 2021-11-23 | Outpatient (CLI) | payer OTHER, SELFPAY ==
--- NOTE | 2021-11-23 12:56 | US_ITS ---
STUDY: THYROID ULTRASOUND REASON FOR EXAM: Male, 76 years old. NODULE seen on CT TECHNIQUE: Ultrasound evaluation of the thyroid was performed with real-time and static molina-scale imaging. COMPARISON: None. FINDINGS: RIGHT LOBE: The right lobe of the thyroid gland measures 5.9 x 2.5 x 2.1 cm. There are 3 nodules in the mid to upper pole of the right lobe. These are mixed solid and cystic nodules measuring 1.0 x 0.7 x 0.4, 0.6 x 0.3 x 1.0 and 0.7 x 0.5 x 0.4 cm. The 0.7 x 0.5 x 0.4 cm focus is predominantly cystic. LEFT LOBE: The left lobe of the thyroid gland measures 5.6 x 2.5 x 2.0 cm.. There are 3 nodules seen within the mid to upper pole of the left lobe measuring 0.7 x 0.8 x 0.5, 1.3 x 0.8 x 0.6 and 1.2 x 0.9 x 0.8 cm. ISTHMUS: The isthmus measures 0.8 cm. 2 nodules are seen in the isthmus 0.7 x 0.8 x 0.6 1.0 x 1.2 x 0.9 . The regional lymph nodes are normal. US/Thyroid IMPRESSION: Multicystic/nodular goiter as above. Electronically Signed: Aurelio Barton MD, NEVAEH at 8:35 EDT ,
== END | disposition home or self-care (01) ==
LOC: US 12:54
PROVIDERS: PCP Family Medicine; Referring Provider Family Medicine; Visit Provider Family Medicine
DX: E04.1 Nontoxic single thyroid nodule (principal)
CPT/HCPCS: 76536

== ENCOUNTER 2021-12-02 09:39 | Outpatient (RCR) | payer OTHER, SELFPAY | END 2021-12-14 23:59 | LOC: NS 09:39 | PROVIDERS: PCP Family Medicine; Referring Provider Nurse Practitioner Adult Health; Visit Provider Nurse Practitioner Adult Health | DX: Z71.3 Dietary counseling and surveillance (principal); I10 Essential (primary) hypertension; E78.5 Hyperlipidemia, unspecified; I48.20 Chronic atrial fibrillation, unspecified; K21.9 Gastro-esophageal reflux disease without esophagitis; K90.49 Malabsorption due to intolerance, not elsewhere classified | CPT/HCPCS: 97802 ==

== ENCOUNTER → 2021-12-02 | Outpatient (CLI) | payer OTHER, SELFPAY ==
--- NOTE | 2021-12-02 | SPU_PTH ---
PATIENT: BALJIT LE LOC: LAB U#:[id number] AGE/SX: 76/M ROOM: RE12/02/[address]: Dr. Sean Weaver MD : 1945 BED: DIS: 12/02/2021 SPEC #: [id number] RECD: 12/02/21 12:09 STATUS: NIKOLAI TYRON #: [id number] EUN: 12/02/21 00:[address]: Sean Weaver V DEPT: CYTOLOGY RECD BY: Crys Feliciano ENTERED: 12/02/21 12:10 SP TYPE: Sputum Cy DALIA DR: Dr. Yanira Pate MD Tissues: Sputum Procedures: Pap Stain (control) Special Stain Group II Special Stain Group I AFB Stain (control) Cytospin Fluid HEADER OPERATION: Not noted PRE-OP DIAGNOSIS: Cough TISSUE SUBMITTED: Sputum for cytology DIAGNOSIS CYTOLOGY Sputum for cytology (smears and cytospins): Negative for malignant cells. Negative for acid-fast bacilli. See comment. AM:mark 12/02/2021 COMMENT AFB stain with matched control was used in the evaluation of this case. CYTOLOGY STUDY Slides are reviewed. CYTOLOGY GROSS Received is 1 ml of colorless mucoid fluid labeled with the patient's name and and designated per the requisition as sputum. Submitted for cytology preparation. / mark 12/02/2021 TC:5 CPT: 51573, 66168
[2021-12-02 09:07] LABS: Acid Fast Stain SEE PATHOLOGY REPORT; Cytology, Body Fluid / CSF SEE PATHOLOGY REPORT
[2021-12-04 20:07] LABS: QNTFERON TB Mitogen Value > 10.00 IU/mL (.); QNTFERON TB Nil Value 0.07 IU/mL (.); QNTFERON TB1+ Ag Value 0.06 IU/mL (.); QNTFERON TB2+ Ag Value 0.07 IU/mL (.)
[2021-12-06 09:30] LABS: QNTIFERON TB Positive Criteria Negative (Negative)
== END | disposition home or self-care (01) ==
LOC: LAB 08:58
PROVIDERS: PCP Family Medicine; Referring Provider Internal Medicine Pulmonary Disease; Visit Provider Internal Medicine Pulmonary Disease
DX: R05.9 Cough, unspecified (principal)
CPT/HCPCS: 36415; 86480; 87015; 87116; 87206; 88108; 88312; 88313

== ENCOUNTER → 2021-12-25 | Outpatient (CLI) | payer OTHER, SELFPAY ==
[2021-12-25 12:49] LABS: Free T3 2.4 pg/mL (2.18-3.98); T4 Free Direct 0.82 ng/dL (0.76-1.46); Thyroid Stim Hormone (TSH) 0.99 uIU/mL (0.358-3.74)
== END | disposition home or self-care (01) ==
LOC: LAB 11:31
PROVIDERS: PCP Family Medicine; Visit Provider Internal Medicine Endocrinology, Diabetes & Metabolism
DX: E05.20 Thyrotoxicosis with toxic multinodular goiter without thyrotoxic crisis or storm (principal)
CPT/HCPCS: 36415; 84439; 84443; 84481

== ENCOUNTER → 2022-03-10 | Outpatient (CLI) | payer OTHER, SELFPAY ==
--- NOTE | 2022-03-10 14:32 | SP.MBSS_ITS ---
Modified Barium Swallow - Patient Information Study Date: 03/10/22 Study Time: 13:00 Direct Billable Minutes: 110 Total Minutes procedure & reportin Diagnosis: Dysphagia, unspecified (R13.10) Referring Physician: Sean Weaver V Reason for Referral: Objectively assess swallow function, assess risk for aspiration, and determine recommendations for least restrictive diet textures and compensatory strategies to improve safety of swallow. Medical History: Pt is a 76-year-old male with PMH including alcohol use, chronic A fib, difficulty swallowing, HTN, former smoker, GERD, hx of hiatal hernia, MARILEE (SEE EMR for full PMH). He follows with [facility] CENTER REPRESENTATIVE, Brenda Cornelius, to manage GERD, hypergastrinemia, and NAFLD. He was referred by Dr. Weaver for cough. Pt reports swallowing difficulty daily for the past couple of years. He reports both food and drink give him difficulty, but especially drinking water fast or eating hard-boiled eggs. He states that if he drinks too much water after the gym, he will feel like he is ?choking and passing out?. Current Diet Ordered: Regular textures / Thin liquids Dentition: WNL Mental Status: WNL Respiratory Status: Oxygenating on Room Air - Penetration-Aspiration Scale Penetration-Aspiration Scale: OBJECTIVE ASSESSMENT OF SWALLOW FUNCTION (QUANTITATIVE ? PER TRIAL): PENETRATION / ASPIRATION SCALE (ANDREW): 1 = does not enter airway 2 = enters airway/above vocal folds/ejected 3 = enters airway/above vocal folds/not ejected 4 = enters airway/contacts vocal folds/ejected 5 = enters airway/contacts vocal folds/not ejected 6 = enters airway/below vocal folds/ejected 7 = enters airway/below vocal folds/not ejected despite effort 8 = enters airway/below vocal folds/no effort VIDEOFLOROSCOPIC SCALE SCORE (ANDREW): Grade I = aspiration of material that has penetrated into the laryngeal vestibule, intact cough reflex Grade II = aspiration < 10 % of the bolus, intact cough reflex Grade III = aspiration of < 10 % of the bolus, reduced cough reflex or aspiration of > 10 % of the bolus, intact cough reflex Grade IV = aspiration of > 10 % of the bolus, reduced cough reflex - Penetration-Aspiration Scale Score Thin Liquid via teaspoon Result: 1= does not enter airway Thin Liquid via teaspoon Trial 2 Result: 1= does not enter airway Thin Liquid via small single sip from cup Result: 1= does not enter airway Thin Liquid via sequential sips from cup Result: 1= does not enter airway [place] Thick Liquid via small single sip from cup Result: 1= does not enter airway Pudding via teaspoon with esophageal screen Result: 1= does not enter airway Thin Liquid via single sip from straw with esophageal screen Result: 1= does not enter airway Thin Liquid via sequential sips from straw with esophageal screen Result: 1= does not enter airway 1/2 Cookie Result: 1= does not enter airway - Oral Phase Labial Seal: No Labial Escape Tongue Control During Bolus Hold: Posterior escape of less than half of bolus Bolus Preparation/Mastication: Timely and efficient chewing and mashing Bolus Transport/Lingual Motion: Brisk tongue motion Oral Residue: Residue collection on oral structures - Pharyngeal Phase Initiation of Pharyngeal Swallow: Bolus head in pyriforms Soft Palate Elevation: Trace column of contrast/air between soft palate and pharyngeal wall Laryngeal Elevation: Comp. Superior move thyroid cart w/comp. apprx arytenoid cart-epig pet Anterior Hyoid Excursion: Partial anterior movement Epiglottic Movement: Complete inversion Laryngeal Vestibule Closure at Height of Swallow: Complete; no air/contrast in laryngeal vestibule Pharyngeal Stripping Wave: Present - complete Pharyngoesophageal Segment Opening: Complete distension and complete duration; no obstruction of flow Tongue Base Retraction: Trace column of contrast between tongue base & post. pharyngeal wall Pharyngeal Residue: Trace residue within or on pharyngeal structures - Esophageal Phase Esophageal Clearance: Esophageal retention w/ retrograde flow through pharyngoesophageal seg - Diagnosis/Impression Diagnosis: Oropharyngeal swallow function grossly WNL; Esophageal dysphagia (R13.14) Impression: Overall, the patient presents with oropharyngeal swallow function WNL. Mildly decreased bolus control with posterior loss of <1/2 of sequential thin liquids to the pyriform sinuses prior to swallow onset. Piecemeal deglutition of cookie, but good mastication abilities observed. Good airway closure during the swallow. No aspiration or laryngeal penetration observed during the study. Trace pharyngeal residues. The esophageal phase is primarily marked by... -Esophageal retention of pudding in mid and lower esophagus. Multiple thin liquid washes were somewhat effective in clearing pudding contrast; however, some retention of thin liquid barium was also observed in the lower esophagus. -Retention of liquids in the upper esophagus in small pouch, concern for developing Zenker?s diverticulum. At times, this contrast would flow through the upper esophageal sphincter (UES) to the pharynx after the swallow. SEE photo below. -Prominent thickening/bulging of the posterior wall of the esophagus just below the UES. SEE photo below and images in PACS. PHYSICAL THERAPY ATTENDANT requested further review of images of study by radiologist to provide further interpretation of esophageal findings. Awaiting response. - Recommendations Diet: Regular Textures, Thin Liquids Compensatory Strategies: Small Bites - chew thoroughly, add sauces/gravies to dry textures to moisten, Small Sips, Slow Rate, Alternate bites/solids and sips/liquids - 2-3 sips after each bite, Sitting upright, Remain sitting upright for 30 minutes after PO intake Recommend Repeat Modified Barium Swallow: No Need for Skilled Speech Therapy Services: No Recommended Referrals: GI Consult - SEE esophageal concerns in Impressions above. Education Completed: 1. Described result of evaluation. - Additional reflux education provided upon pt asking PHYSICAL THERAPY ATTENDANT about effects of alcohol on reflux. PHYSICAL THERAPY ATTENDANT recommended decreasing both caffeine and alcohol consumption to better manage his reflux. - Status Active ST Patient: Active - Contact Information [facility] Speech Therapy:: Sena Parada M.A. [facility]-PHYSICAL THERAPY ATTENDANT Speech-Language Pathologist [facility] [address] [place] [address] [email or web address] [phone] 03/10/22 14:41
== END | disposition home or self-care (01) ==
LOC: RAD 12:29
PROVIDERS: PCP Family Medicine; Referring Provider Internal Medicine Pulmonary Disease; Visit Provider Internal Medicine Pulmonary Disease
DX: R05.9 Cough, unspecified (principal)
CPT/HCPCS: 74230; 92611

== ENCOUNTER → 2022-04-09 | Outpatient (CLI) | payer OTHER, SELFPAY ==
[2022-04-09 08:57] LABS: Free T3 2.7 pg/mL (2.18-3.98); T4 Free Direct 0.91 ng/dL (0.76-1.46); Thyroid Stim Hormone (TSH) 1.05 uIU/mL (0.358-3.74)
== END | disposition home or self-care (01) ==
PROVIDERS: PCP Family Medicine; Referring Provider Internal Medicine Endocrinology, Diabetes & Metabolism; Visit Provider Internal Medicine Endocrinology, Diabetes & Metabolism
DX: E05.20 Thyrotoxicosis with toxic multinodular goiter without thyrotoxic crisis or storm (principal)
CPT/HCPCS: 36415; 84439; 84443; 84481

== ENCOUNTER → 2022-07-28 | Outpatient (CLI) | payer OTHER, SELFPAY ==
--- NOTE | 2022-07-28 07:48 | US_ITS ---
STUDY: ABDOMINAL ULTRASOUND - RIGHT UPPER QUADRANT REASON FOR VISIT: Male, 76 years old NAFLD, elastography -- [facility] TECHNIQUE: Ultrasound evaluation of the right upper quadrant was performed with real-time and static molina-scale imaging. TECHNICAL QUALITY: Limited. Examination limited by bowel gas. COMPARISON: Comparison is made with prior study February 11, 2021. FINDINGS: Liver: The liver measures 17.9 cm. There is increased echogenicity consistent with fatty infiltration. The bile ducts are within normal limits. There is hepatic color flow. The direction of portal flow is hepatopetal. There is no demonstrated mass lesion. Gallbladder: The patient is status post cholecystectomy. Common Bile Duct (C.B.D.): The common bile duct measures 6.9 mm. Pancreas: Normal size of the head, body and tail of the pancreas. There is increased echogenicity of the pancreas. There is no demonstrated pancreatic mass or cyst. Right Kidney: Normal size of the right kidney. The right kidney measures 11.6 cm x 5.4 cm x 5.9 cm. Normal renal cortex. The right cortex measures 1.4 cm. 3 cysts are seen. The largest measures 1.6 cm x 1.8 cm x 1.4 cm. There is no right hydronephrosis. US/Abdomen Limited IMPRESSION: Fatty infiltration of the liver. Borderline hepatomegaly. Right renal cysts. Status post cholecystectomy. Electronically Signed: Darrian Rodriguez MD at 12:07 EDT ,
--- NOTE | 2022-07-28 07:48 | US_ITS ---
STUDY: ABDOMINAL ULTRASOUND - ELASTOGRAPHY REASON FOR VISIT: Male, 76 years old. . NAFLD TECHNIQUE: Liver stiffness measurements were obtained on a Kaliki RS 85 ultrasound machine using a CA 1-7 probe following the SRU guidelines. 3 measurements were obtained using a 2-D-SWE method. TheIQR/M was 16% suggesting a quality data set. TECHNICAL QUALITY: Adequate. COMPARISON: Comparison is made with prior study dated February 11, 2021. FINDINGS: Liver: There is no demonstrated mass lesion. Median liver stiffness measured 16 kPa. Abdomen: There is no demonstrated mass lesion. US/Elastography Parenchyma/Organ IMPRESSION: Liver stiffness measures 16 kPa compatible with F3-F4 (Moderate to severe liver fibrosis) Metavir score. Electronically Signed: Darrian Rodriguez MD at 12:18 EDT ,
== END | disposition home or self-care (01) ==
LOC: US 07:47
PROVIDERS: PCP Family Medicine; Referring Provider Nurse Practitioner Adult Health; Visit Provider Nurse Practitioner Adult Health
DX: K76.0 Fatty (change of) liver, not elsewhere classified (principal)
CPT/HCPCS: 76705; 76981

== ENCOUNTER → 2022-08-25 | Outpatient (CLI) | payer OTHER, SELFPAY ==
[2022-08-25 12:33] LABS: Absolute Neutrophil Count 2.8 X10^3/uL (2.0-7.7); Hematocrit 38.4 % (40-54); Hemoglobin 12.9 g/dL (13.0-16.5); Mean Corp Hgb Conc 33.6 g/dL (32-36); Mean Corpuscular Hgb 31.9 pg (27.0-32.0); Platelet Count 208 K/mm3 (150-450); Red Blood Count 4.04 M/mm3 (4.6-6.2); White Blood Count 6.1 K/mm3 (4.4-11.0)
[2022-08-25 12:39] LABS: Erythrocyte Sedimentation Rate 10 mm/hr (0-20)
[2022-08-25 13:37] LABS: AST(SGOT) 25 U/L (15-37); Alanine Aminotransfer ALT/SGPT 29 U/L (16-61); Albumin, Serum 3.5 g/dL (3.2-5.0); Alkaline Phosphatase 64 U/L (45-117); Bilirubin, Direct 0.16 mg/dL (0.00-0.30); CRP 3.86 mg/L (0.0-3.0); Protein, Total 7.5 g/dL (6.4-8.2); Rheumatoid Factor < 10.0 IU/mL (<15)
[2022-08-25 14:37] LABS: Absolute Lymphocyte Count 2.07 X10^3/uL (0.83-4.51); Basophil# 0.05 X10^3/uL; Basophil% 0.8 % (0-1); Eosinophil# 0.16 X10^3/uL; Eosinophils% 2.7 % (0-5); Lymphocyte # 2.07 X10^3/ul (0.83-4.51); Lymphocyte % 34.6 % (19-41); Mean Platelet Vol. 11.1 fl (6.2-12.0); Monocyte# 0.93 X10^3/uL; Monocyte% 15.6 % (0-10); NRBC Flagged by Analyzer 0 % (0-5); Neutrophil # 2.75 X10^3/uL (2.7-7.7); RBC Distribution Width CV 14.8 % (11.6-14.6); RBC Distribution Width SD 52.1 fl (35.1-43.9)
[2022-08-26 15:09] LABS: ANTINUCLEAR ANTIBODIES DIRECT Negative (Negative); Anti-Scleroderma-70 AB <0.2 AI (0.0-0.9); Anti-dsDNA Ab <1 IU/mL (0-9); SJOGREN'S Anti-SS-A test < 0.2 AI (0.0-0.9); SJOGREN'S Anti-SS-B test < 0.2 AI (0.0-0.9)
[2022-08-26 17:07] LABS: Angiotensin Convert Enzyme 90 U/L (14-82); Anti-Smooth Muscle ABS 7 Units (0-19); CCP IgG Antibodies 5 units (0-19); Cytoplasmic Ab (C-ANCA) <1:20 titer (Neg:<1:20); Perinuclear Ab (P-ANCA) <1:20 titer (Neg:<1:20)
== END | disposition home or self-care (01) ==
PROVIDERS: PCP Family Medicine; Referring Provider Internal Medicine Pulmonary Disease; Visit Provider Internal Medicine Pulmonary Disease
DX: R05.9 Cough, unspecified (principal); R06.02 Shortness of breath
CPT/HCPCS: 36415; 80076; 82164; 83516; 85007; 85025; 85027; 85652; 86038; 86140; 86200; 86225; 86235; 86256; 86431

== ENCOUNTER 2022-09-08 05:18 | Day surgery (SDC) | payer OTHER, SELFPAY ==
--- NOTE | 2022-09-08 | GASB_PTH ---
PATIENT: BALJIT LE LOC: EN U#:[id number] AGE/SX: 77/M ROOM: RE09/08/[address]: Dr. Axel Sparrow DO : 1945 BED: DIS: 09/08/2022 SPEC #: [id number] RECD: 09/08/22 11:49 STATUS: NIKOLAI TYRON #: [id number] EUN: 09/08/22 00:[address]: Axel Sparrow DEPT: SURGICAL PATHOLOGY RECD BY: Gareth Lunsford ENTERED: 09/08/22 11:50 SP TYPE: Gastric Bx DALIA DR: Dr. Yanira Pate MD Tissues: A - Duodenum, NOS B - Pylorus C - Gastric mucous membrane Procedures: Surgery Specimen Level IV HEADER OPERATION: Colonoscopy, EGD ([facility] [place] and biopsy PRE-OP DIAGNOSIS: Difficulty swallowing and fatty liver TISSUE SUBMITTED: A - Duodenum biopsy, B - Pylorus biopsy, C - Gastric body biopsy, H. pylori and path MICROSCOPIC DIAGNOSIS A. Duodenum, biopsy: Fragments of duodenal mucosa, no pathologic diagnosis. B. Pylorus, biopsy: Mild gastritis. See microscopic description. C. Gastric body, biopsy: Minimal gastritis. See microscopic description and comment. SJ:rg 09/09/2022 COMMENT C. The results of immunohistochemistry for Helicobacter pylori will be reported separately ([id number]). MICROSCOPIC DESCRIPTION Slides are reviewed. B. The specimen shows fragments of gastric mucosa with chronic inflammatory cell infiltrates in the lamina propria consisting of lymphocytes and plasma cells, consistent with mild chronic gastritis. C. The specimen shows fragments of gastric mucosa with chronic inflammatory cell infiltrates in the lamina propria consisting of lymphocytes and plasma cells, consistent with minimal chronic gastritis. GROSS DESCRIPTION A - Received in fixative is one container labeled with the patient's name and designated duodenum biopsy. The specimen consists of multiple irregular fragments of light knight soft tissue that in aggregate measure 1.5 x 0.2 x 0.1 cm. The specimen is totally submitted in one cassette. B - Received in fixative is one container labeled with the patient's name and designated pylorus biopsy. The specimen consists of one irregular fragment of light knight soft tissue that measures 0.3 x 0.3 x 0.1 cm. The specimen is totally submitted in one cassette. C - Received in fixative is one container labeled with the patient's name and designated gastric body biopsy. The specimen consists of multiple irregular fragments of light knight soft tissue that in aggregate measure 1.2 x 0.4 x 0.1 cm. The specimen is totally submitted in one cassette. / RICHARD:mark 09/08/2022 TC:3 CPT: 52982 x3
[2022-09-08] MEDS: Lactated Ringers 1,000 ML 15 ML IV (05:54)
[2022-09-08 05:58] VITALS: BP 132/74; PULSE 54; RESP 18; TEMP 36.1; O2SAT 96; BMI 37.0
--- NOTE | 2022-09-08 06:29 | HP.PCM_ITS ---
History and Physical Date of Admission: 09/08/22 BALJIT LE, is a 76 M who presents to the office today for f/u GERD, NAFLD, hx hypergastrinemia Has multiple food intolerances, we referred to mobile sales assistant per his request, he met with burr bench hand in 11/2021 for help with weight loss. GERD-- Continues to take esomeprazole 40 mg daily, heartburn controlled. He is having increasing dysphagia despite following recommendations of AUTOMOTIVE QUALITY MANAGER; he had MBSS in 03/2022 which showed: Esophageal retention w/ retrograde flow through pharyngoesophageal seg NAFLD -- US abd/pel and elastography 02.11.21 finding hepatomegaly measuring 19.1cm with fatty infiltration. Liver stiffness measuring 6kPa compatible with F2 Metavir score. Taking vitamin E. Didn't tolerate ursodiol. Hypergastrinemia -- Thickened gastric folds on EGD in 2020. His gastrin level was 874 in 01/2021, 569 in 03/2021, then 301 in 11/2021. [place] to be secondary to PPI therapy. Since it decreased to reasonable level for being on PPI, it was determined he didn't need octreotide scan and EUS. EGD performed 01.15.21 finding Grade I esophageal varices. LA Grade A reflux es ophagitis without metaplasia. Single gastric polyp, retrieved. Gastric mucosal atrophy. Thickened gastric fold throughout stomach mucosa. CT abd/pel performed 01.26.21 Liver steatosis consistencies with 1.1cm cyst in inferior medial aspect of right lobe. Multiple colonic diverticula consistent with diverticulosis. Bilateral renal cysts. Atherosclerotic calcification of abdominal aorta and major visceral branches. Borderline retroperitoneal lymphadenopathy. Enlarged prostate 4.6cm x 5.3cm. Small umbilical hernia containing fat. Basilar linear scarring of the lung ROS Const Constitutional: No fatigue ENT ENT: Positive for difficulty swallowing Gastro GI: Positive for abdominal pain and difficulty swallowing; No belching, bloating, change in bowel habits, change in stool character, coffee ground emesis, constipation, cramping, diarrhea, heartburn, feeling full early, excessive flatus, incontinent of stools, Vomiting blood/hematemesis, Blood in stool, loose stools, Black,tarry stools, nausea/dyspepsia, pain with swallowing, vomiting or other Musc Musculoskeletal: Positive for stiffness; No joint pain Skin Skin: No yellowing of the eye or itchy eyes Psych Psychiatric: No anxiety and No depression Endo Endocrine: No fatigue Aller/Imm Allergy/Immunologic: No itchy eyes Daquan/Lymp Hematologic/Lymphatic: Positive for easy bruising; No easy bleeding Exam Const General: cooperative and comfortable Nutritional Appearance: obese Orientation: alert, awake and oriented x3 Quality Reporting Tobacco Screening ([facility] 138) Smoking Status: Former smoker Assessment and Plan Assessment and Plan (1) Difficulty swallowing: Status: Chronic Plan: EGD to eval dysphagia He is following the recommendations of AUTOMOTIVE QUALITY MANAGER; he had MBSS in 02/2022 He states he is due for f/u colonoscopy, last was 3 yrs ago at [facility] (2) Fatty liver: Status: Chronic Plan: Update elastography He takes vit E Orders: Orders Abdomen Limited Today K76.0 - Fatty (change of) liver, not elsewhere classified Elastography Parenchyma/Organ Today K76.0 - Fatty (change of) liver, not elsewhere classified
--- NOTE | 2022-09-08 06:30 | IMM_PTH ---
PATIENT: BALJIT LE LOC: EN U#:[id number] AGE/SX: 77/M ROOM: RE09/08/[address]: Dr. Axel Sparrow DO : 1945 BED: DIS: 09/08/2022 SPEC #: [id number] RECD: 09/08/22 13:49 STATUS: NIKOLAI REAnayeli #: [id number] EUN: 09/08/22 06:[address]: Axel Sparrow DEPT: IMMUNOHISTOCHEMISTRY RECD BY: Stephanie Corrales ENTERED: 09/08/22 13:50 SP TYPE: IMMUNO OTHR DR: Dr. Yanira Pate MD Tissues: C - Stomach, NOS Procedures: H Pylori (initial) PHYSICIAN & INSTITUTION [place] [address] SPECIMEN INFORMATION: Tissue Source: C - Gastric body Clinical Info: Difficulty swallowing, fatty liver Specimen Number: [id number] CPT code: 75539 METHODOLOGY: Deparaffinized sections of prefer/formalin-fixed tissue or PAP/DQ stained slides are incubated with monoclonal/polyclonal antibodies/oligonucleotide probes. Localization is made via biotin free immunoperoxidase method. Appropriate controls are performed and reacted as expected. Results on target cell population are indicated in the following table: RESULTS: ANTIBODY / CLONE RESULT Block C H Pylori (polyclonal) negative These tests were developed and their performance characteristics determined by [facility]. They may not have been cleared or approved by the U.S. Food and Drug Administration. The FDA has determined that such clearance or approval is not necessary. The above immunohistochemical/dualISH markers are ordered and reviewed by the Pathologist. INTERPRETATION: C. Gastric body, biopsy: Negative for Helicobacter pylori organisms. SJ:mark 09/09/2022
[2022-09-08 07:10] VITALS: BP 107/66; BP 132/74; PULSE 53; RESP 16; TEMP 36.2; O2SAT 92
[2022-09-08 07:15] VITALS: BP 111/65; BP 132/74; PULSE 53; RESP 18; O2SAT 93
--- NOTE | 2022-09-08 07:17 | OP.CCLET_ITS ---
09/08/2022 Yanira Pate Md Re : Upper GI endoscopy procedure for Nabeel Clifford [place] This procedure was performed on Thursday, September 08, 2022. My impressions and recommendations are as follows: Impressions : - Grade I esophageal varices. - Small hiatal hernia. - Portal hypertensive gastropathy. Biopsied. - Erythematous duodenopathy. Biopsied. Recommendations : - Discharge patient to home. - Resume previous diet. - Continue present medications. - Await pathology results. My findings are described in the full procedure note, which is enclosed. If I can be of further assistance, please feel free to contact me at . Sincerely, Axel Sparrow, 09/08/2022 7:16:47 AM This report has been signed electronically.
--- NOTE | 2022-09-08 07:17 | OP.EGD_ITS ---
Patient Name: Nabeel Clifford Procedure Date: 09/08/2022 6:17 AM Date of : 1945 Age: 77 Procedure: Upper GI endoscopy Indications: Dysphagia, Heartburn Providers: Axel Sparrow DO Referring MD: Axel Sparrow DO Medicines: Monitored Anesthesia Care Patient Profile: This is a 77 year old male. Refer to note in patient chart for documentation of history and physical. Patient has symptoms of chronic dysphagia. Complications: No immediate complications. Procedure: Pre-Anesthesia Assessment: - Prior to the procedure, a History and Physical was performed, and patient medications and allergies were reviewed. The patient is competent. The risks and benefits of the procedure and the sedation options and risks were discussed with the patient. All questions were answered and informed consent was obtained. Patient identification and proposed procedure were verified by the physician in the pre-procedure area. Mental Status Examination: alert and oriented. Airway Examination: normal oropharyngeal airway and neck mobility. Respiratory Examination: clear to auscultation. CV Examination: normal. Prophylactic Antibiotics: The patient does not require prophylactic antibiotics. Prior Anticoagulants: The patient has taken no previous anticoagulant or antiplatelet agents. ASA Grade Assessment: II - A patient with mild systemic disease. After reviewing the risks and benefits, the patient was deemed in satisfactory condition to undergo the procedure. The anesthesia plan was to use monitored anesthesia care (MAC). Immediately prior to administration of medications, the patient was re-assessed for adequacy to receive sedatives. The heart rate, respiratory rate, oxygen saturations, blood pressure, adequacy of pulmonary ventilation, and response to care were monitored throughout the procedure. The physical status of the patient was re-assessed after the procedure. After obtaining informed consent, the endoscope was passed under direct vision. Throughout the procedure, the patient's blood pressure, pulse, and oxygen saturations were monitored continuously. The Colonoscope was introduced through the mouth, and advanced to the second part of duodenum. The upper GI endoscopy was accomplished without difficulty. The patient tolerated the procedure well. Scope In: 6:41:50 AM Scope Out: 6:46:48 AM Total Procedure Duration Time 0 hours 4 minutes 58 seconds Findings: Grade I varices were found in the proximal esophagus and in the distal esophagus. They were 3 mm in largest diameter. A small hiatal hernia was present. Mild portal hypertensive gastropathy was found in the gastric body. Biopsies were taken with a cold forceps for histology. Verification of patient identification for the specimen was done. Estimated blood loss was minimal. The cardia and gastric fundus were normal on retroflexion. Patchy mildly erythematous mucosa without active bleeding and with no stigmata of bleeding was found in the duodenal bulb. Biopsies were taken with a cold forceps for histology. Verification of patient identification for the specimen was done [Identifiers]. Impression: - Grade I esophageal varices. - Small hiatal hernia. - Portal hypertensive gastropathy. Biopsied. - Erythematous duodenopathy. Biopsied. Recommendation: - Discharge patient to home. - Resume previous diet. - Continue present medications. - Await pathology results. Procedure Code(s): --- Professional --- 06226, Esophagogastroduodenoscopy, flexible, transoral; with biopsy, single or multiple CPT copyright 2017 [employer]. All rights reserved. The codes documented in this report are preliminary and upon certified medical coder review may be revised to meet current compliance requirements. Axel Sparrow DO 09/08/2022 7:16:47 AM This report has been signed electronically. Number of Addenda: 0 Note Initiated On: 09/08/2022 6:17 AM
[2022-09-08 07:20] VITALS: BP 114/70; BP 132/74; PULSE 56; RESP 18; O2SAT 93
--- NOTE | 2022-09-08 07:20 | OP.COLON_ITS ---
Patient Name: Nabeel Clifford Procedure Date: 09/08/2022 6:46 AM Date of : 1945 Age: 77 Procedure: Colonoscopy Indications: Follow-up for history of adenomatous polyps in the colon Providers: Axel Sparrow DO Referring MD: Axel Sparrow DO Medicines: Monitored Anesthesia Care Patient Profile: This is a 77 year old male. Refer to note in patient chart for documentation of history and physical. Patient has symptoms of chronic dysphagia. Last Colonoscopy: more than 3 years ago. Complications: No immediate complications. Procedure: Pre-Anesthesia Assessment: - Prior to the procedure, a History and Physical was performed, and patient medications and allergies were reviewed. The patient is competent. The risks and benefits of the procedure and the sedation options and risks were discussed with the patient. All questions were answered and informed consent was obtained. Patient identification and proposed procedure were verified by the physician in the pre-procedure area. Mental Status Examination: alert and oriented. Airway Examination: normal oropharyngeal airway and neck mobility. Respiratory Examination: clear to auscultation. CV Examination: normal. Prophylactic Antibiotics: The patient does not require prophylactic antibiotics. Prior Anticoagulants: The patient has taken no previous anticoagulant or antiplatelet agents. ASA Grade Assessment: II - A patient with mild systemic disease. After reviewing the risks and benefits, the patient was deemed in satisfactory condition to undergo the procedure. The anesthesia plan was to use monitored anesthesia care (MAC). Immediately prior to administration of medications, the patient was re-assessed for adequacy to receive sedatives. The heart rate, respiratory rate, oxygen saturations, blood pressure, adequacy of pulmonary ventilation, and response to care were monitored throughout the procedure. The physical status of the patient was re-assessed after the procedure. After I obtained informed consent, the scope was passed under direct vision. Throughout the procedure, the patient's blood pressure, pulse, and oxygen saturations were monitored continuously. The Colonoscope was introduced through the anus and advanced to the terminal ileum. The colonoscopy was performed without difficulty. The patient tolerated the procedure well. The quality of the bowel preparation was fair. Scope In: 6:49:42 AM Scope Withdrawal Time 0 hours 10 minutes 58 seconds Scope Out: 7:04:04 AM Total Procedure Duration Time 0 hours 14 minutes 22 seconds Findings: The perianal and digital rectal examinations were normal. Multiple small and large-mouthed diverticula were found in the recto-sigmoid colon, sigmoid colon and descending colon. Stool was found in the rectum, in the recto-sigmoid colon, in the sigmoid colon, in the transverse colon, in the ascending colon and in the cecum. Lavage of the area was performed, resulting in clearance with fair visualization. Impression: - Preparation of the colon was fair. - Diverticulosis in the recto-sigmoid colon, in the sigmoid colon and in the descending colon. - Stool in the rectum, in the recto-sigmoid colon, in the sigmoid colon, in the transverse colon, in the ascending colon and in the cecum. - No specimens collected. Recommendation: - Discharge patient to home. - Resume previous diet. - Continue present medications. - Repeat colonoscopy in 3 years for surveillance. Procedure Code(s): --- Professional --- 84628, Colonoscopy, flexible; diagnostic, including collection of specimen(s) by brushing or washing, when performed (separate procedure) CPT copyright 2017 [employer]. All rights reserved. The codes documented in this report are preliminary and upon latin american studies professor review may be revised to meet current compliance requirements. Axel Sparrow DO 09/08/2022 7:20:25 AM This report has been signed electronically. Number of Addenda: 0 Note Initiated On: 09/08/2022 6:46 AM
--- NOTE | 2022-09-08 07:21 | OP.CCLET_ITS ---
09/08/2022 Yanira Pate Md Re : Colonoscopy procedure for Nabeel Clifford [place] This procedure was performed on Thursday, September 08, 2022. My impressions and recommendations are as follows: Impressions : - Preparation of the colon was fair. - Diverticulosis in the recto-sigmoid colon, in the sigmoid colon and in the descending colon. - Stool in the rectum, in the recto-sigmoid colon, in the sigmoid colon, in the transverse colon, in the ascending colon and in the cecum. - No specimens collected. Recommendations : - Discharge patient to home. - Resume previous diet. - Continue present medications. - Repeat colonoscopy in 3 years for surveillance. My findings are described in the full procedure note, which is enclosed. If I can be of further assistance, please feel free to contact me at . Sincerely, Axel Sparrow, 09/08/2022 7:20:25 AM This report has been signed electronically.
[2022-09-08 07:25] VITALS: BP 118/75; BP 132/74; PULSE 54; RESP 18; TEMP 36.2; O2SAT 96
[2022-09-08 07:37] VITALS: BP 132/74
== END 2022-09-08 07:50 | disposition home or self-care (01) ==
LOC: EN 05:19 → AC 05:20
PROVIDERS: PCP Family Medicine; Referring Provider Family Medicine; Visit Provider Internal Medicine Gastroenterology
PROC: 0DJD8ZZ Inspection of Lower Intestinal Tract, Via Natural or Artificial Opening Endoscopic (ICD-10-PCS; CPT 45378; principal; 2022-09-08 06:25)
DX: I85.00 Esophageal varices without bleeding (principal); K76.6 Portal hypertension; I48.20 Chronic atrial fibrillation, unspecified; K31.89 Other diseases of stomach and duodenum; K44.9 Diaphragmatic hernia without obstruction or gangrene; K29.70 Gastritis, unspecified, without bleeding; K57.30 Diverticulosis of large intestine without perforation or abscess without bleeding; K21.9 Gastro-esophageal reflux disease without esophagitis; K76.0 Fatty (change of) liver, not elsewhere classified; K90.49 Malabsorption due to intolerance, not elsewhere classified; I10 Essential (primary) hypertension; G47.33 Obstructive sleep apnea (adult) (pediatric); E78.5 Hyperlipidemia, unspecified; E07.9 Disorder of thyroid, unspecified; E66.9 Obesity, unspecified; Z68.37 Body mass index [BMI] 37.0-37.9, adult; Z90.49 Acquired absence of other specified parts of digestive tract; Z99.81 Dependence on supplemental oxygen; Z79.01 Long term (current) use of anticoagulants; Z79.899 Other long term (current) drug therapy; Z86.010 Personal history of colon polyps; Z87.891 Personal history of nicotine dependence
CPT/HCPCS: 43239; 45378; 88305; 88342; J7120; J2405

== ENCOUNTER → 2022-09-24 | Outpatient (CLI) | payer OTHER, SELFPAY ==
[2022-09-24 11:21] LABS: Free T3 2.4 pg/mL (2.18-3.98); T4 Free Direct 0.84 ng/dL (0.76-1.46); Thyroid Stim Hormone (TSH) 1.24 uIU/mL (0.358-3.74)
== END | disposition home or self-care (01) ==
PROVIDERS: PCP Family Medicine; Referring Provider Internal Medicine Endocrinology, Diabetes & Metabolism; Visit Provider Internal Medicine Endocrinology, Diabetes & Metabolism
DX: E05.20 Thyrotoxicosis with toxic multinodular goiter without thyrotoxic crisis or storm (principal)
CPT/HCPCS: 36415; 84439; 84443; 84481

== ENCOUNTER → 2023-01-25 | Outpatient (CLI) | payer OTHER, SELFPAY ==
--- NOTE | 2023-01-25 07:37 | CT_ITS ---
STUDY: CT CHEST WITHOUT CONTRAST REASON FOR EXAM: Male, 77 years old. HEMOPTYSIS RADIATION DOSAGE (If Supplied By Facility): CTDIvol = ( 19.97 ) mGy, DLP = ( 887.54 ) mGycm TECHNIQUE: Transaxial imaging was performed without the administration of intravenous contrast material. Multiplanar coronal and sagittal images were reformatted. Individualized dose optimization techniques were used for this CT. COMPARISON: Comparison is made with prior study dated the 2021. FINDINGS: CHEST Stable increased interstitial markings with evidence of bronchiectasis and subpleural blebs in both lungs worse in the lower lobes. Findings in keeping with chronic fibrosis. There is no demonstrated pleural abnormality. There are calcifications of the coronary arteries. Normal mediastinum. Normal hilar regions. Normal unenhanced pulmonary arteries. There is atherosclerotic calcification of the aortic arch. There are multi-level degenerative changes of the thoracic spine. There is no demonstrated abnormality of the visualized upper abdomen. CT/Chest without Contrast IMPRESSION: Stable examination with evidence of increased interstitial markings with areas of bronchiectasis and subpleural blebs. Electronically Signed: Darrian Rodriguez MD at 14:44 EST ,
== END | disposition home or self-care (01) ==
LOC: CT 07:30
PROVIDERS: PCP Family Medicine; Referring Provider Internal Medicine Pulmonary Disease; Visit Provider Internal Medicine Pulmonary Disease
DX: R04.2 Hemoptysis (principal)
CPT/HCPCS: 71250

== ENCOUNTER → 2023-04-05 | Outpatient (CLI) | payer OTHER, SELFPAY ==
[2023-04-05 12:17] LABS: Free T3 2.9 pg/mL (2.18-3.98); T4 Free Direct 0.87 ng/dL (0.76-1.46); Thyroid Stim Hormone (TSH) 1.34 uIU/mL (0.358-3.74)
== END | disposition home or self-care (01) ==
LOC: LAB 10:48
PROVIDERS: PCP Family Medicine; Referring Provider Internal Medicine Endocrinology, Diabetes & Metabolism; Visit Provider Internal Medicine Endocrinology, Diabetes & Metabolism
DX: E05.20 Thyrotoxicosis with toxic multinodular goiter without thyrotoxic crisis or storm (principal)
CPT/HCPCS: 36415; 84439; 84443; 84481

== ENCOUNTER 2023-04-13 11:42 | Day surgery (SDC) | payer OTHER, SELFPAY ==
--- NOTE | 2023-04-13 | LUNB_PTH ---
PATHOLOGY RESULTS PATIENT: BALJIT LE LOC: EN U#:[id number] AGE/SX: 77/M ROOM: RE04/13/[address]: Dr. Sean Weaver MD : 1945 BED: DIS: 04/13/2023 SPEC #: [id number] RECD: 04/13/23 09:02 STATUS: NIKOLAI TYRON #: [id number] EUN: 04/13/23 00:[address]: Sean Weaver V DEPT: SURGICAL PATHOLOGY RECD BY: Gareth Lunsford ENTERED: 04/14/23 09:03 SP TYPE: LUNG BX OTHR DR: Dr. Yanira Pate MD Tissues: Bronchus of right lower lobe Procedures: Elastin Stain (control) Trichrome (control) Special Stain Group II Special Stain Group I Surgery Specimen Level IV AFB Stain (control) GMS Stain (control) Retic (control) HEADER OPERATION: Bronchoscopy (MAC) with fluoroscopy, biopsy and washings PRE-OP DIAGNOSIS: Hemoptysis TISSUE SUBMITTED: Right lower lobe biopsy MICROSCOPIC DIAGNOSIS Right lower lobe, transbronchial biopsy: Lung parenchymal tissue with focal interstitial fibrosis and chronic inflammation. Negative for malignancy. See comment. SJ:mark 04/15/2023 COMMENT Special stains for acid fast bacilli and fungi are negative for organisms; matched controls are appropriate. Reticulin, elastic and trichrome stains with matched controls are also used in the evaluation of the specimen. Correlation with clinical, radiologic findings and appropriate follow up are necessary. This case is discussed with Dr. Weaver on 04/15/23. Case has been reviewed in consultation with Dr. Yang who concurs with the above diagnosis. IDC:AM MICROSCOPIC DESCRIPTION Slides are reviewed. The specimen shows lung parenchymal tissue with focal interstitial fibrosis and chronic inflammation. Alveolar spaces show focal accumulation of macrophages and non-refractile homogenous and amorphous eosinophilic material deposition. Significant vasculitis and changes consistent with lipoid pneumonia are not seen. Pneumocyte-2 hyperplasia is also noted. No evidence of malignancy. GROSS DESCRIPTION Received in fixative is one container labeled with the patient's name and designated right lower lobe biopsy. The specimen consists of multiple irregular fragments of light knight soft tissue that in aggregate measure 1.0 x 0.5 x 0.1 cm. The specimen is totally submitted in one cassette. / AM:mark 04/14/2023 TC:3 CPT: 98140, 80346 x2, 06827 x3 ADDENDUM ADDENDUM 05/23/2023 09:51 This addendum is added to incorporate an outside pathology consultation report. The case was examined at [facility] (#[id number]) and the following diagnosis was rendered. No malignancy, significant inflammation or granulomas are identified on this material. No microorganisms are identified on GMS and AFB stains. Please see complete above mentioned consultation report in EMR
--- NOTE | 2023-04-13 | FLU_PTH ---
PATHOLOGY RESULTS PATIENT: BALJIT LE LOC: EN U#:[id number] AGE/SX: 77/M ROOM: RE04/13/[address]: Dr. Sean Weaver MD : 1945 BED: DIS: 04/13/2023 SPEC #: [id number] RECD: 04/14/23 07:13 STATUS: NIKOLAI TYRON #: [id number] EUN: 04/13/23 00:[address]: Sean Weaver V DEPT: CYTOLOGY RECD BY: Geno Morrison ENTERED: 04/14/23 07:13 SP TYPE: Fluid OTHR DR: Dr. Yanira Pate MD Tissues: Bronchus of right lower lobe Procedures: Special Stain Group II Special Stain Group I Surgery Specimen Level IV AFB Stain (control) GMS Stain (control) Cytospin Fluid HEADER OPERATION: Bronchoscopy (MAC) with fluoroscopy, biopsy and washings PRE-OP DIAGNOSIS: Hemoptysis TISSUE SUBMITTED: Right lower lobe washings DIAGNOSIS CYTOLOGY Right lower lobe washings (cytospin and cell block): Negative for malignant cells. See comment. RICHARD:mark 04/15/2023 COMMENT Special stains for acid fast bacilli and fungi are negative for organisms; matched controls are appropriate. Please make reference to additional specimen ([id number]), right lower lobe biopsy. CYTOLOGY STUDY Slides are reviewed. CYTOLOGY GROSS Received is 30 ml of red/pink mucoidy cloudy fluid labeled with the patient's name and and designated per the requisition as right lower lobe. Submitted for cytology preparation including cell block. / mark 04/14/2023 TC:5 CPT: 12133, 81214, 05486 x2 ADDENDUM ADDENDUM 05/26/2023 08:25 This addendum is added to incorporate an outside pathology consultation report. The case was examined at [facility] (#[id number]) and the following diagnosis was rendered. Right lower lobe washings: No malignant cells are identified. Please see complete above mentioned consultation report in EMR
[2023-04-13 12:25] VITALS: BP 157/77; PULSE 73; RESP 16; TEMP 36.6; O2SAT 97; BMI 37.8
[2023-04-13] MEDS: Lactated Ringers 1,000 ML 15 ML IV (12:28)
--- NOTE | 2023-04-13 12:55 | RAD_ITS ---
PROCEDURE: Bronchoscopy DATE OF EXAMINATION: 04/13/2023 INDICATION: Male, 77 years old. Fever and cough PHYSICIAN: Dr. Weaver FLUOROSCOPY TIME (if supplied): (107.5) seconds, one fluoroscopic image obtained RADIATION DOSAGE (If Supplied By Facility): CTDIvol = ( 30.42 ) mGy, DLP = ( ) mGycm CONSENT: The risks, benefits and alternatives to the procedure were explained to the patient, and the patient agreed to the procedure and signed the consent. 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 PROCEDURE/TECHNIQUE: (All elements of maximal sterile barrier technique followed, including US elements as applicable) The risks, benefits, and alternatives to the procedure were explained to patient, and the patient agreed to the procedure and signed a consent form for the procedure. A timeout was performed to confirm the patient''s identity, the type of procedure, to be performed and the site of entry. Fluoroscopy provided for bronchoscopy performed by Dr. Weaver RAD/Fluoroscopy 1 Hr or Less IMPRESSION: Fluoroscopy provided for bronchoscopy Electronically Signed: Andres Khan MD at 14:14 EST ,
[2023-04-13] MEDS: Phenylephrine 0.25% 15 ML NASAL.SRY 15 SPRAY NASAL (12:56)
[2023-04-13] MEDS: Lidocaine 2% (5ml sdv) 5 ML VIAL.MPF (12:56)
[2023-04-13] MEDS: Lidocaine Jelly 2% 20 ML Syringe (URO-JET) 1 APPLIC (12:56)
--- NOTE | 2023-04-13 13:30 | RAD_ITS ---
STUDY: X-RAY CHEST REASON FOR EXAM: Male, 77 years old. POST OP TECHNIQUE: Single AP portable view of the chest. COMPARISON: Comparison is made with prior study dated July 05, 2019. FINDINGS: EKG electrodes are seen. Patchy right lower lobe infiltrate. There is no demonstrated pleural abnormality. Normal size heart. Normal mediastinum and jason. Normal visualized pulmonary arteries. There is atherosclerotic calcification of the aortic arch with tortuosity. There are diffuse degenerative changes of the visualized thoracic spine. Status post left shoulder replacement. There is no demonstrated abnormality of the visualized soft tissue structures of the upper abdomen. RAD/Chest 1 View (Portable) IMPRESSION: Patchy right lower lobe infiltrate. Electronically Signed: Darrian Rodriguez MD at 14:15 EST ,
[2023-04-13 13:31] VITALS: BP 129/83; BP 157/77; PULSE 67; RESP 14; TEMP 36.2; O2SAT 96
[2023-04-13 13:33] VITALS: BP 133/105; BP 157/77; PULSE 67; RESP 18; O2SAT 96
--- NOTE | 2023-04-13 13:33 | OP.BRONCH_ITS ---
Patient Name: Nabeel Clifford Procedure Date: 04/13/2023 12:13 PM Date of : 1945 Age: 77 Procedure: Bronchoscopy Indications: Hemoptysis, Hemoptysis with abnormal CXR, Interstitial lung disease Providers: Sean Weaver MD Referring MD: Yanira Pate Md Medicines: Lidocaine applied to nares and subglottic space Complications: No immediate complications Procedure: Pre-Anesthesia Assessment: - A History and Physical has been performed. The patient's medications, allergies and sensitivities have been reviewed. - The risks and benefits of the procedure and the sedation options and risks were discussed with the patient. All questions were answered and informed consent was obtained. After I obtained informed consent, the scope was passed under direct vision. Throughout the procedure, the patient's blood pressure, pulse, and oxygen saturations were monitored continuously. The bronchoscope was introduced through the left nostril and advanced to the tracheobronchial tree of both lungs. The patient tolerated the procedure well. The total duration of the procedure was 25 minutes. Moderate Sedation: An independent trained observer was present and continuously monitored the patient. Findings: Left Lung Abnormalities: The nasopharynx/oropharynx appears normal. The larynx appears normal. The vocal cords appear normal. The subglottic space is normal. The trachea is of normal caliber. The paula is sharp. The tracheobronchial tree was examined to at least the first subsegmental level. Bronchial mucosa and anatomy are normal; there are no endobronchial lesions, and no secretions. Transbronchial biopsies of an area of infiltration were performed in the lateral basal segment of the right lower lobe using forceps [Analysis]. [Radiological Guidance]. Biopsy of lung tissue was obtained. Five biopsy passes were performed. Five biopsy samples were obtained. The bronchoscope was advanced until wedged at the desired location for bronchoalveolar lavage. BAL was performed [Site] [Analysis]. [Instilled volume]. [return volume]. [return description]. [Plugs present]. [Multi samples]. Impression: - Hemoptysis - Hemoptysis with abnormal CXR - Interstitial lung disease - The airway examination was normal. - Transbronchial lung biopsies were performed. - Bronchoalveolar lavage was performed. Recommendation: - Await [tests] results. MD Sean Mann MD 04/13/2023 1:32:58 PM This report has been signed electronically. Number of Addenda: 0 Note Initiated On: 04/13/2023 12:13 PM
[2023-04-13 13:39] VITALS: BP 132/57; BP 157/77; PULSE 68; RESP 18; O2SAT 96
[2023-04-13 13:45] VITALS: BP 135/80; BP 157/77; PULSE 65; RESP 18; TEMP 36.4; O2SAT 97
[2023-04-13 13:52] LABS: Cytology, Body Fluid / CSF SEE PATHOLOGY REPORT
[2023-04-13 14:30] VITALS: BP 157/77
[2023-04-13 18:34] LABS: Appearance/Body Fluid CLOUDY; Auto B Fluid Analyzer BKGD Ct COUNTS W/IN LIMITS (W/IN LIMITS); Color/Body Fluid SLIGHTLY PINK; Source- Body Fluid OTHER
[2023-04-13 18:35] LABS: Red Cell Count/Body Fluid 375 /mm3; White Blood Count/Body Fluid 51 /mm3
[2023-04-13 20:57] LABS: Body Fluid QC Type(s) BF3Q; Lymphocytes 38 %; Neutrophil (Segs) 20 %; Other Cell Type/BF 42 %
[2023-04-15 10:09] LABS: Pathologist Comment/Body Fluid Reviewed
== END 2023-04-13 14:37 | disposition home or self-care (01) ==
LOC: EN 11:43 → AC 11:44
PROVIDERS: PCP Family Medicine; Referring Provider Family Medicine; Visit Provider Internal Medicine Pulmonary Disease
PROC: 0BJ08ZZ Inspection of Tracheobronchial Tree, Via Natural or Artificial Opening Endoscopic (ICD-10-PCS; CPT 31622; principal; 2023-04-13 12:45)
DX: J84.10 Pulmonary fibrosis, unspecified (principal); I48.20 Chronic atrial fibrillation, unspecified; R04.2 Hemoptysis; J45.30 Mild persistent asthma, uncomplicated; J30.2 Other seasonal allergic rhinitis; G47.33 Obstructive sleep apnea (adult) (pediatric); I10 Essential (primary) hypertension; K21.9 Gastro-esophageal reflux disease without esophagitis; E66.9 Obesity, unspecified; Z68.38 Body mass index [BMI] 38.0-38.9, adult; Z99.81 Dependence on supplemental oxygen; Z79.01 Long term (current) use of anticoagulants; Z79.51 Long term (current) use of inhaled steroids; Z79.899 Other long term (current) drug therapy; Z87.891 Personal history of nicotine dependence
CPT/HCPCS: 31624; 31628; 71045; 76000; 88108; 88305; 88312; 88313; 89050; J7120; J3490

== ENCOUNTER → 2023-08-26 | Outpatient (CLI) | payer OTHER, SELFPAY ==
[2023-08-26 11:24] LABS: Free T3 3.1 pg/mL (2.18-3.98); T4 Free Direct 0.88 ng/dL (0.76-1.46); Thyroid Stim Hormone (TSH) 1.31 uIU/mL (0.358-3.74)
== END | disposition home or self-care (01) ==
LOC: LAB 09:39
PROVIDERS: PCP Family Medicine; Referring Provider Internal Medicine Endocrinology, Diabetes & Metabolism; Visit Provider Internal Medicine Endocrinology, Diabetes & Metabolism
DX: E05.20 Thyrotoxicosis with toxic multinodular goiter without thyrotoxic crisis or storm (principal)
CPT/HCPCS: 36415; 84439; 84443; 84481

== ENCOUNTER → 2024-05-23 | Outpatient (CLI) | payer OTHER, SELFPAY ==
[2024-05-23 13:31] LABS: Free T3 2.7 pg/mL (2.18-3.98)
== END | disposition home or self-care (01) ==
LOC: LAB 12:21
PROVIDERS: PCP Family Medicine; Referring Provider Nurse Practitioner Family; Visit Provider Nurse Practitioner Family
DX: E05.20 Thyrotoxicosis with toxic multinodular goiter without thyrotoxic crisis or storm (principal)
CPT/HCPCS: 36415; 84439; 84443; 84481

== ENCOUNTER → 2024-07-17 | Outpatient (CLI) | payer OTHER, SELFPAY ==
[2024-07-17 12:48] LABS: Basophil# 0.05 X10^3/uL; Basophil% 0.7 % (0-1); Eosinophil# 0.08 X10^3/uL; Eosinophils% 1.2 % (0-5); Hematocrit 37.6 % (40-54); Hemoglobin 13.1 g/dL (13.0-16.5); Lymphocyte % 36.9 % (19-41); Mean Corp Hgb Conc 34.8 g/dL (32-36); Mean Corpuscular Hgb 32.5 pg (27.0-32.0); Mean Corpuscular Volume 93.3 fL (80-94); Mean Platelet Vol. 11.1 fl (6.2-12.0); Monocyte# 1.09 X10^3/uL; Monocyte% 16.1 % (0-10); NRBC Flagged by Analyzer 0 % (0-5); Neutrophil # 3.03 X10^3/uL (2.7-7.7); Neutrophil % 44.8 % (47-70); Platelet Count 227 K/mm3 (150-450); RBC Distribution Width CV 14.9 % (11.6-14.6); RBC Distribution Width SD 51.7 fl (35.1-43.9); Red Blood Count 4.03 M/mm3 (4.6-6.2); White Blood Count 6.8 K/mm3 (4.4-11.0)
[2024-07-17 13:39] LABS: Magnesium 1.6 mg/dL (1.5-2.2)
[2024-07-17 13:57] LABS: ALB/GLOB Ratio 1.3 RATIO (0.9-2.4); AST(SGOT) 30 U/L (<=37); Alanine Aminotransfer ALT/SGPT 25 U/L (<=46); Albumin, Serum 4.4 g/dL (3.4-4.8); Alkaline Phosphatase 64 U/L (40-129); Anion Gap 14 (5-15); BUN 21 mg/dL (4-19); BUN/Creat Ratio 18.2 RATIO (10-20); Calcium,Total 9.7 mg/dL (7.6-11.0); Carbon Dioxide 21.4 mmol/L (21.0-32.0); Chloride 101 mmol/L (98-108); Creatinine, Serum 1.17 mg/dL (0.70-1.20); EST Glomerular Filtration Rate 65 (>60); Globulin 3.3 g/dL (2.2-4.2); Glucose 95 mg/dL (70-99); Potassium 4.3 mmol/L (3.3-5.1); Protein, Total 7.6 g/dL (5.9-8.4); Sodium Level 136 mmol/L (133-145); Total Bilirubin 0.59 mg/dL (0.00-1.30)
== END | disposition home or self-care (01) ==
PROVIDERS: PCP Family Medicine; Referring Provider Nurse Practitioner Family; Visit Provider Nurse Practitioner Family
DX: I10 Essential (primary) hypertension (principal); I48.20 Chronic atrial fibrillation, unspecified; E78.5 Hyperlipidemia, unspecified
CPT/HCPCS: 36415; 80053; 83735; 85025